=== PATIENT | male | born 1935 | race Caucasian/White ===

== ENCOUNTER 2017-08-29 14:18 | Emergency (ER) | payer MEDICARE, OTHER ==
[~2017-08-29] VITALS: Ht 175.3 cm; Wt 102.9 kg
[~2017-08-29 14:18] MED LIST: AMIO100T4 PO; ASPI-496 PO; CELE200C PO; DABI150C PO; DIPH1TAB PO; FURO-92 PO; LISI5TAB7 PO; NITR0.4T28 SL; PANT40TA5 PO; POTA20TA6 PO; PRAV40TA PO
[2017-08-29] MEDS ORDERED: ONDANSETRON ODT 4 MG PO ONE (15:30)
[2017-08-29 15:39] LABS: BASOPHILS # (AUTO) 0.04 x10^3/uL (0-0.1); BASOPHILS % (AUTO) 0 % (0-1); EOSINOPHILS % (AUTO) 0 % (1-7); LYMPHOCYTES # (AUTO) 1.38 x10^3/uL (1-3.4); LYMPHOCYTES % (AUTO) 15 % (22-44); MD NO; MEAN CORPUSCULAR HEMOGLOBIN 29.6 pg (27.5-34.5); MEAN CORPUSCULAR HGB CONC 32.9 g/dL (33.2-36.2); MEAN PLATELET VOLUME 8.5 fL (7.4-10.4); MONOCYTES % (AUTO) 13 % (2-9); NEUTROPHILS # (AUTO) 6.53 x10^3/uL (1.8-6.8); NEUTROPHILS % (AUTO) 71 % (42-75); PLATELET COUNT 198 x10^3/uL (130-400); RED BLOOD COUNT 4.21 x10^6/uL (4.38-5.82); RED CELL DISTRIBUTION WIDTH 15.3 % (9.4-14.8)
[2017-08-29] MEDS ORDERED: ONDANSETRON ODT 4 MG ONE (15:40)
[2017-08-29 15:50] LABS: ALBUMIN 3.5 g/dL (3.4-5.0); ANION GAP 10 mmol/L (5-15); CALCIUM 8.8 mg/dL (8.5-10.1); CHLORIDE 106 mmol/L (98-107); CREATININE 0.89 mg/dL (0.7-1.3)
[2017-08-29 15:54] LABS: TROPONIN I < 0.015 ng/mL (0.000-0.045)
[2017-08-29 16:21] LABS: MICROSCOPIC NOT IND
[2017-08-29 16:23] LABS: CULTURE INDICATED? NO
[2017-08-29 17:24] VITALS: BP 127/78
== END 2017-08-29 18:01 | disposition home or self-care (01) ==
LOC: ED 17:29
DX: R53.1 Weakness (principal); I11.0 Hypertensive heart disease with heart failure; I50.1 Left ventricular failure, unspecified; Z87.891 Personal history of nicotine dependence
CPT/HCPCS: 36415; 71045; 80048; 81003; 82040; 83880; 84484; 85025; 93005; 99285; Q0162

== ENCOUNTER 2017-09-01 17:18 | Emergency (ER) | payer MEDICARE ==
[~2017-09-01] VITALS: Ht 172.7 cm; Wt 102.2 kg
[2017-09-01] MEDS ORDERED: MAALOX/HYOSCYAMINE/LIDOCAINE 45 ML BTL PO ONE (18:30)
[2017-09-01] MEDS ORDERED: ONDANSETRON ODT 4 MG PO ONE (18:30)
[2017-09-01] MEDS ORDERED: FURO-93 PO (18:33)
[2017-09-01] MEDS ORDERED: ASCO10004 PO (18:33)
[2017-09-01] MEDS ORDERED: CHOL2000 PO (18:33)
[2017-09-01] MEDS ORDERED: CALC-545 PO (18:33)
[2017-09-01 19:07] LABS: BASOPHILS # (AUTO) 0.12 x10^3/uL (0-0.1); BASOPHILS % (AUTO) 1 % (0-1); EOSINOPHILS # (AUTO) 0.22 x10^3/uL (0-0.4); EOSINOPHILS % (AUTO) 2 % (1-7); LYMPHOCYTES # (AUTO) 1.45 x10^3/uL (1-3.4); LYMPHOCYTES % (AUTO) 15 % (22-44); MD NO; MEAN CORPUSCULAR HEMOGLOBIN 29.8 pg (27.5-34.5); MEAN CORPUSCULAR VOLUME 90.2 fL (81-97); MEAN PLATELET VOLUME 8.9 fL (7.4-10.4); MONOCYTES % (AUTO) 10 % (2-9); NEUTROPHILS # (AUTO) 7.03 x10^3/uL (1.8-6.8); NEUTROPHILS % (AUTO) 72 % (42-75); PLATELET COUNT 201 x10^3/uL (130-400); RED BLOOD COUNT 4.35 x10^6/uL (4.38-5.82); RED CELL DISTRIBUTION WIDTH 15.4 % (9.4-14.8)
[2017-09-01 19:10] LABS: ALANINE AMINOTRANSFERASE 18 U/L (12-78); ALBUMIN 3.6 g/dL (3.4-5.0); ANION GAP 9 mmol/L (5-15); CALCIUM 8.4 mg/dL (8.5-10.1); CHLORIDE 105 mmol/L (98-107); CREATININE 0.78 mg/dL (0.7-1.3)
[2017-09-01] MEDS ORDERED: MAALOX/HYOSCYAMINE/LIDOCAINE 45 ML BTL ONE (19:11)
[2017-09-01] MEDS ORDERED: ONDANSETRON ODT 4 MG ONE (19:11)
[2017-09-01 19:15] LABS: ALKALINE PHOSPHATASE 66 U/L (45-117); BILIRUBIN,TOTAL 0.9 mg/dL (0.2-1.0); TOTAL PROTEIN 7.5 g/dL (6.4-8.2); TROPONIN I < 0.015 ng/mL (0.000-0.045)
[2017-09-01 19:17] VITALS: BP 143/71
== END 2017-09-01 20:29 | disposition home or self-care (01) ==
LOC: ED 20:00
DX: R11.0 Nausea (principal); R60.0 Localized edema; I11.0 Hypertensive heart disease with heart failure; I50.9 Heart failure, unspecified; I48.91 Unspecified atrial fibrillation; Z88.0 Allergy status to penicillin
CPT/HCPCS: 36415; 74022; 80053; 83690; 83880; 84484; 85025; 93005; 99285; Q0162

== ENCOUNTER → 2017-09-16 | Outpatient (CLI) | payer MEDICARE ==
[~2017-09-16] MED LIST changes: +ASCO10004 PO; +CALC-545 PO; +CHOL2000 PO; +FURO-93 PO
== END | disposition home or self-care (01) ==
LOC: CFH 10:52
PROVIDERS: ATTEND Nurse Practitioner Primary Care
DX: M81.0 Age-related osteoporosis without current pathological fracture (principal); I10 Essential (primary) hypertension; E29.1 Testicular hypofunction; I48.91 Unspecified atrial fibrillation; R11.0 Nausea; E78.2 Mixed hyperlipidemia
CPT/HCPCS: 77080

== ENCOUNTER 2017-10-09 18:30 | Observation (INO) | payer MEDICARE ==
[~2017-10-09] VITALS: Ht 175.3 cm; Wt 99.2 kg
[2017-10-09 19:13] LABS: BASOPHILS # (AUTO) 0.04 x10^3/uL (0-0.1); BASOPHILS % (AUTO) 1 % (0-1); EOSINOPHILS # (AUTO) 0.18 x10^3/uL (0-0.4); EOSINOPHILS % (AUTO) 2 % (1-7); LYMPHOCYTES # (AUTO) 1.71 x10^3/uL (1-3.4); LYMPHOCYTES % (AUTO) 18 % (22-44); MD NO; MEAN CORPUSCULAR HGB CONC 33.5 g/dL (33.2-36.2); MEAN CORPUSCULAR VOLUME 86.6 fL (81-97); MEAN PLATELET VOLUME 8.9 fL (7.4-10.4); MONOCYTES # (AUTO) 0.96 x10^3/uL (0.2-0.8); MONOCYTES % (AUTO) 10 % (2-9); NEUTROPHILS # (AUTO) 6.36 x10^3/uL (1.8-6.8); NEUTROPHILS % (AUTO) 69 % (42-75); PLATELET COUNT 208 x10^3/uL (130-400); RED BLOOD COUNT 4.46 x10^6/uL (4.38-5.82); RED CELL DISTRIBUTION WIDTH 16.6 % (9.4-14.8)
[2017-10-09 19:27] LABS: TROPONIN I < 0.015 ng/mL (0.000-0.045)
[2017-10-09 19:43] LABS: MICROSCOPIC AUTO
[2017-10-09 19:48] LABS: CULTURE INDICATED? NO
[2017-10-09] MEDS ORDERED: OMEG1CAP24 PO (20:02)
[2017-10-09] MEDS ORDERED: CYAN25009 PO (20:02)
[2017-10-09] MEDS ORDERED: GLUC1CAP48 PO (20:02)
[2017-10-09] MEDS ORDERED: LOSA25TA5 PO (20:02)
[2017-10-09 20:46] LABS: ALBUMIN 3.7 g/dL (3.4-5.0); ANION GAP 9 mmol/L (5-15); CALCIUM 8.8 mg/dL (8.5-10.1); CHLORIDE 104 mmol/L (98-107)
[2017-10-09 20:49] LABS: CREATININE 0.87 mg/dL (0.7-1.3)
[2017-10-09 20:52] LABS: ALKALINE PHOSPHATASE 66 U/L (45-117); BILIRUBIN,TOTAL 0.6 mg/dL (0.2-1.0); TOTAL PROTEIN 7.4 g/dL (6.4-8.2)
[2017-10-09 20:54] LABS: ALANINE AMINOTRANSFERASE 18 U/L (12-78)
[2017-10-09] MEDS ORDERED: MORPHINE SULFATE 4 MG/ML, 1ML IVPush PRN (21:30)
[2017-10-09] MEDS ORDERED: MORPHINE SULFATE 4 MG/ML, 1ML ONE (21:54)
[2017-10-09] MEDS ORDERED: DIPHENHYDRAMINE 50 MG/ML, 1ML IVPush ONE (22:30)
[2017-10-09] MEDS ORDERED: DIPHENHYDRAMINE 50 MG/ML, 1ML IV ONE (22:30)
[2017-10-09] MEDS ORDERED: ACETAMINOPHEN 325 MG TABLET PO PRN (23:00)
[2017-10-09] MEDS ORDERED: TAMSULOSIN 0.4 MG CAP.ER.24H PO ONE (23:00)
[2017-10-09] MEDS: OMEGA-3/FISH OIL CAPSULE PO SCH (23:00)
[2017-10-09] MEDS ORDERED: NITROGLYCERIN 0.4 MG BOTTLE (25 TABS) SL PRN (23:00)
[2017-10-09] MEDS ORDERED: LEVOFLOXACIN 500 MG TABLET PO SCH (23:00)
[2017-10-09] MEDS ORDERED: ONDANSETRON 2MG/ML, 2ML IVPush PRN (23:00)
[2017-10-09] MEDS: SODIUM CHLORIDE 0.9% 1,000 ML IV SCH (23:31)
[2017-10-09] MEDS: DABIGATRAN 150 MG CAPSULE PO SCH (23:31)
[2017-10-10 01:37] VITALS: BP 135/83
[2017-10-10 05:57] LABS: ANION GAP 8 mmol/L (5-15); CALCIUM 8.7 mg/dL (8.5-10.1); CHLORIDE 106 mmol/L (98-107)
[2017-10-10 06:00] LABS: CREATININE 0.81 mg/dL (0.7-1.3)
[2017-10-10 06:06] LABS: BASOPHILS # (AUTO) 0.03 x10^3/uL (0-0.1); BASOPHILS % (AUTO) 1 % (0-1); EOSINOPHILS % (AUTO) 0 % (1-7); LYMPHOCYTES # (AUTO) 1.53 x10^3/uL (1-3.4); LYMPHOCYTES % (AUTO) 25 % (22-44); MD NO; MEAN CORPUSCULAR HEMOGLOBIN 28.4 pg (27.5-34.5); MEAN CORPUSCULAR HGB CONC 32.6 g/dL (33.2-36.2); MEAN CORPUSCULAR VOLUME 86.9 fL (81-97); MEAN PLATELET VOLUME 8.9 fL (7.4-10.4); MONOCYTES # (AUTO) 0.79 x10^3/uL (0.2-0.8); MONOCYTES % (AUTO) 13 % (2-9); NEUTROPHILS # (AUTO) 3.85 x10^3/uL (1.8-6.8); NEUTROPHILS % (AUTO) 62 % (42-75); PLATELET COUNT 186 x10^3/uL (130-400); RED CELL DISTRIBUTION WIDTH 17.1 % (9.4-14.8)
[2017-10-10 08:15] VITALS: BP 122/75
[2017-10-10] MEDS ORDERED: LOSARTAN 25MG TABLET PO SCH (09:00)
[2017-10-10] MEDS ORDERED: PANTOPROZOLE 40MG TABLET PO SCH (09:00)
[2017-10-10] MEDS ORDERED: POTASSIUM CHLORIDE 20 MEQ TAB.ER.PRT PO SCH (09:00)
[2017-10-10] MEDS ORDERED: FUROSEMIDE 20 MG TABLET PO SCH (09:00)
[2017-10-10] MEDS: DABIGATRAN 150 MG CAPSULE PO SCH (09:26)
[2017-10-10] MEDS: OMEGA-3/FISH OIL CAPSULE PO SCH (09:27)
[2017-10-10] MEDS: SODIUM CHLORIDE 0.9% 1,000 ML IV SCH (13:07)
[2017-10-10] MEDS ORDERED: LEVO750T26 PO (13:49)
== END 2017-10-10 14:50 | disposition home or self-care (01) ==
LOC: ED 19:53 → EDIP 22:07 → INTOOBSV 22:07 → 3NE 22:44
PROVIDERS: ADMIT Family Medicine; ATTEND Family Medicine
DX: N39.0 Urinary tract infection, site not specified (principal); R30.0 Dysuria; I48.2 Chronic atrial fibrillation; I11.0 Hypertensive heart disease with heart failure; E78.5 Hyperlipidemia, unspecified; I25.10 Atherosclerotic heart disease of native coronary artery without angina pectoris; I25.2 Old myocardial infarction; I50.9 Heart failure, unspecified; K57.90 Diverticulosis of intestine, part unspecified, without perforation or abscess without bleeding; M19.90 Unspecified osteoarthritis, unspecified site; Z79.01 Long term (current) use of anticoagulants; Z82.3 Family history of stroke; Z86.73 Personal history of transient ischemic attack (TIA), and cerebral infarction without residual deficits; Z96.649 Presence of unspecified artificial hip joint
CPT/HCPCS: 36415; 71045; 74176; 80048; 80053; 81001; 82550; 83880; 84443; 84484; 85025; 87040; 87086; 93005; 96374; 96375; 97162; 99285; G0378; G8978; G8979; G8980; J1200; J7030

== ENCOUNTER 2017-10-25 13:47 | Emergency (ER) | payer MEDICARE ==
[~2017-10-25] VITALS: Ht 172.7 cm; Wt 96.7 kg
[~2017-10-25 13:47] MED LIST changes: +CYAN25009 PO; +GLUC1CAP48 PO; +LEVO750T26 PO; +LOSA25TA6 PO; +OMEG1CAP24 PO
[2017-10-25 14:29] LABS: BASOPHILS # (AUTO) 0.06 x10^3/uL (0-0.1); BASOPHILS % (AUTO) 1 % (0-1); EOSINOPHILS # (AUTO) 0.22 x10^3/uL (0-0.4); EOSINOPHILS % (AUTO) 2 % (1-7); LYMPHOCYTES # (AUTO) 1.57 x10^3/uL (1-3.4); LYMPHOCYTES % (AUTO) 16 % (22-44); MD NO; MEAN CORPUSCULAR HEMOGLOBIN 28.6 pg (27.5-34.5); MEAN CORPUSCULAR HGB CONC 33.2 g/dL (33.2-36.2); MEAN CORPUSCULAR VOLUME 86.1 fL (81-97); MEAN PLATELET VOLUME 8.7 fL (7.4-10.4); MONOCYTES # (AUTO) 0.97 x10^3/uL (0.2-0.8); MONOCYTES % (AUTO) 10 % (2-9); NEUTROPHILS # (AUTO) 6.83 x10^3/uL (1.8-6.8); NEUTROPHILS % (AUTO) 71 % (42-75); PLATELET COUNT 186 x10^3/uL (130-400); RED BLOOD COUNT 4.83 x10^6/uL (4.38-5.82); RED CELL DISTRIBUTION WIDTH 18.7 % (9.4-14.8)
[2017-10-25 14:41] LABS: ALANINE AMINOTRANSFERASE 25 U/L (12-78); ALBUMIN 3.9 g/dL (3.4-5.0); ANION GAP 10 mmol/L (5-15); CALCIUM 8.9 mg/dL (8.5-10.1); CHLORIDE 102 mmol/L (98-107)
[2017-10-25 14:44] LABS: ALKALINE PHOSPHATASE 71 U/L (45-117); BILIRUBIN,TOTAL 0.7 mg/dL (0.2-1.0); CREATININE 0.95 mg/dL (0.7-1.3); TOTAL PROTEIN 7.7 g/dL (6.4-8.2)
[2017-10-25 15:33] LABS: MICROSCOPIC NOT IND
[2017-10-25 15:46] LABS: CULTURE INDICATED? NO
[2017-10-25 17:10] VITALS: BP 172/91
== END 2017-10-25 17:27 | disposition home or self-care (01) ==
LOC: ED 15:32
DX: N30.00 Acute cystitis without hematuria (principal); I48.91 Unspecified atrial fibrillation; I11.0 Hypertensive heart disease with heart failure; I50.9 Heart failure, unspecified; Z88.0 Allergy status to penicillin
CPT/HCPCS: 36415; 51702; 74176; 80053; 81003; 85025; 99285

== ENCOUNTER 2017-11-15 13:53 | Emergency (ER) | payer MEDICARE, OTHER ==
[~2017-11-15] VITALS: Ht 175.3 cm; Wt 93.5 kg
[2017-11-15] MEDS ORDERED: SODIUM CHLORIDE 0.9% 1,000ML IVBOLUS ONE (14:30)
[2017-11-15] MEDS ORDERED: SODIUM CHLORIDE FLUSH 10ML SYR IVF ONE (14:30)
[2017-11-15 14:41] LABS: BASOPHILS # (AUTO) 0.05 x10^3/uL (0-0.1); BASOPHILS % (AUTO) 1 % (0-1); EOSINOPHILS # (AUTO) 0.08 x10^3/uL (0-0.4); EOSINOPHILS % (AUTO) 1 % (1-7); LYMPHOCYTES # (AUTO) 0.86 x10^3/uL (1-3.4); LYMPHOCYTES % (AUTO) 13 % (22-44); MD NO; MEAN CORPUSCULAR HEMOGLOBIN 28.6 pg (27.5-34.5); MEAN CORPUSCULAR HGB CONC 33.2 g/dL (33.2-36.2); MEAN CORPUSCULAR VOLUME 86.2 fL (81-97); MEAN PLATELET VOLUME 8.3 fL (7.4-10.4); MONOCYTES # (AUTO) 0.85 x10^3/uL (0.2-0.8); MONOCYTES % (AUTO) 13 % (2-9); NEUTROPHILS # (AUTO) 4.79 x10^3/uL (1.8-6.8); NEUTROPHILS % (AUTO) 72 % (42-75); PLATELET COUNT 154 x10^3/uL (130-400); RED BLOOD COUNT 4.59 x10^6/uL (4.38-5.82); RED CELL DISTRIBUTION WIDTH 20.1 % (9.4-14.8)
[2017-11-15 14:52] LABS: ALBUMIN 3.7 g/dL (3.4-5.0); ANION GAP 9 mmol/L (5-15); CALCIUM 8.3 mg/dL (8.5-10.1); CHLORIDE 95 mmol/L (98-107); CREATININE 0.72 mg/dL (0.7-1.3)
[2017-11-15 14:56] LABS: TROPONIN I < 0.015 ng/mL (0.000-0.045)
[2017-11-15 17:14] VITALS: BP 156/101
== END 2017-11-15 17:28 | disposition home or self-care (01) ==
LOC: ED 14:52
DX: E87.1 Hypo-osmolality and hyponatremia (principal); R42 Dizziness and giddiness; I11.0 Hypertensive heart disease with heart failure; I50.9 Heart failure, unspecified; I48.91 Unspecified atrial fibrillation
CPT/HCPCS: 36415; 71045; 80048; 82040; 84484; 85025; 93005; 96360; 99285; J7030

== ENCOUNTER 2017-12-01 16:19 | Emergency (ER) | payer MEDICARE, OTHER ==
[~2017-12-01] VITALS: Ht 174 cm; Wt 90.5 kg
[2017-12-01] MEDS ORDERED: MORPHINE SULFATE 4 MG/ML, 1ML IVPush PRN (17:30)
[2017-12-01] MEDS ORDERED: SODIUM CHLORIDE FLUSH 10ML SYR IVF ONE (17:30)
[2017-12-01] MEDS ORDERED: MORPHINE SULFATE 4 MG/ML, 1ML ONE (17:37)
[2017-12-01 17:44] LABS: ALBUMIN 3.5 g/dL (3.4-5.0); ANION GAP 11 mmol/L (5-15); CALCIUM 8.2 mg/dL (8.5-10.1); CHLORIDE 99 mmol/L (98-107)
[2017-12-01 17:48] LABS: ALANINE AMINOTRANSFERASE 24 U/L (12-78); ALKALINE PHOSPHATASE 52 U/L (45-117); BILIRUBIN,TOTAL 0.8 mg/dL (0.2-1.0); CREATININE 0.66 mg/dL (0.7-1.3); TOTAL PROTEIN 6.8 g/dL (6.4-8.2)
[2017-12-01 17:59] LABS: BASOPHILS # (AUTO) 0.04 x10^3/uL (0-0.1); BASOPHILS % (AUTO) 1 % (0-1); EOSINOPHILS # (AUTO) 0.14 x10^3/uL (0-0.4); EOSINOPHILS % (AUTO) 2 % (1-7); LYMPHOCYTES # (AUTO) 1.31 x10^3/uL (1-3.4); LYMPHOCYTES % (AUTO) 18 % (22-44); MEAN CORPUSCULAR HEMOGLOBIN 29.6 pg (27.5-34.5); MEAN CORPUSCULAR HGB CONC 33.5 g/dL (33.2-36.2); MEAN CORPUSCULAR VOLUME 88.3 fL (81-97); MEAN PLATELET VOLUME 8.5 fL (7.4-10.4); MONOCYTES # (AUTO) 0.86 x10^3/uL (0.2-0.8); MONOCYTES % (AUTO) 12 % (2-9); NEUTROPHILS # (AUTO) 4.83 x10^3/uL (1.8-6.8); NEUTROPHILS % (AUTO) 67 % (42-75); PLATELET COUNT 158 x10^3/uL (130-400); RED BLOOD COUNT 4.31 x10^6/uL (4.38-5.82); RED CELL DISTRIBUTION WIDTH 20.2 % (9.4-14.8)
[2017-12-01 18:00] LABS: MD NO
[2017-12-01 18:03] LABS: MICROSCOPIC AUTO
[2017-12-01 18:07] LABS: CULTURE INDICATED? YES
[2017-12-01 19:57] VITALS: BP 145/89
== END 2017-12-01 21:10 | disposition home or self-care (01) ==
LOC: ED 18:39
DX: R10.2 Pelvic and perineal pain (principal); R33.9 Retention of urine, unspecified; I11.0 Hypertensive heart disease with heart failure; I50.9 Heart failure, unspecified; I25.2 Old myocardial infarction; E78.00 Pure hypercholesterolemia, unspecified; I48.91 Unspecified atrial fibrillation; Z87.891 Personal history of nicotine dependence
CPT/HCPCS: 36415; 74176; 80053; 81001; 83605; 85025; 87086; 96374

== ENCOUNTER 2017-12-28 08:04 | Emergency (ER) | payer MEDICARE ==
[~2017-12-28] VITALS: Ht 175.3 cm; Wt 84.1 kg
[2017-12-28] MEDS ORDERED: DILTIAZEM 5 MG/ML, 5ML ONE (08:30)
[2017-12-28 08:42] LABS: BASOPHILS # (AUTO) 0.04 x10^3/uL (0-0.1); BASOPHILS % (AUTO) 1 % (0-1); EOSINOPHILS # (AUTO) 0.21 x10^3/uL (0-0.4); EOSINOPHILS % (AUTO) 3 % (1-7); LYMPHOCYTES # (AUTO) 1.08 x10^3/uL (1-3.4); LYMPHOCYTES % (AUTO) 16 % (22-44); MD NO; MEAN CORPUSCULAR HEMOGLOBIN 30.5 pg (27.5-34.5); MEAN CORPUSCULAR HGB CONC 33.6 g/dL (33.2-36.2); MEAN CORPUSCULAR VOLUME 90.7 fL (81-97); MEAN PLATELET VOLUME 8.5 fL (7.4-10.4); MONOCYTES # (AUTO) 0.67 x10^3/uL (0.2-0.8); MONOCYTES % (AUTO) 10 % (2-9); NEUTROPHILS # (AUTO) 4.99 x10^3/uL (1.8-6.8); NEUTROPHILS % (AUTO) 71 % (42-75); PLATELET COUNT 177 x10^3/uL (130-400); RED CELL DISTRIBUTION WIDTH 17.9 % (9.4-14.8)
[2017-12-28 08:53] LABS: ALBUMIN 3.6 g/dL (3.4-5.0); ANION GAP 7 mmol/L (5-15); CALCIUM 8.9 mg/dL (8.5-10.1); CHLORIDE 106 mmol/L (98-107); CREATININE 0.88 mg/dL (0.7-1.3)
[2017-12-28 08:56] LABS: CREATINE KINASE, TOTAL 67 U/L (39-308); TROPONIN I < 0.015 ng/mL (0.000-0.045)
[2017-12-28] MEDS ORDERED: DILTIAZEM 5 MG/ML, 5ML IVPush ONE (09:00)
[2017-12-28 09:07] LABS: MICROSCOPIC INDICATED
[2017-12-28 09:08] LABS: CULTURE INDICATED? YES
[2017-12-28 09:17] VITALS: BP 155/80
[2017-12-28] MEDS ORDERED: DILTIAZEM 60 MG TABLET ONE (10:15)
[2017-12-28] MEDS ORDERED: DILTIAZEM 60 MG TABLET PO ONE (11:00)
== END 2017-12-28 10:21 | disposition home or self-care (01) ==
LOC: ED 08:58
DX: I48.2 Chronic atrial fibrillation (principal); I50.9 Heart failure, unspecified; I25.2 Old myocardial infarction; E78.00 Pure hypercholesterolemia, unspecified; I11.0 Hypertensive heart disease with heart failure; W19.XXXA Unspecified fall, initial encounter; Y93.89 Activity, other specified; Y99.8 Other external cause status; Y92.129 Unspecified place in nursing home as the place of occurrence of the external cause
CPT/HCPCS: 36415; 71045; 80048; 81001; 82040; 82550; 83735; 84484; 85025; 87077; 87086; 87186; 93005; 96374

== ENCOUNTER 2018-01-01 21:10 | Inpatient (IN) | payer MEDICARE ==
[~2018-01-01] VITALS: Ht 175.3 cm; Wt 93.8 kg
[2018-01-01 21:51] LABS: BASOPHILS # (AUTO) 0.02 x10^3/uL (0-0.1); BASOPHILS % (AUTO) 0 % (0-1); EOSINOPHILS % (AUTO) 0 % (1-7); LYMPHOCYTES # (AUTO) 0.64 x10^3/uL (1-3.4); LYMPHOCYTES % (AUTO) 11 % (22-44); MD NO; MEAN CORPUSCULAR HEMOGLOBIN 30.7 pg (27.5-34.5); MEAN CORPUSCULAR HGB CONC 33.6 g/dL (33.2-36.2); MEAN CORPUSCULAR VOLUME 91.6 fL (81-97); MEAN PLATELET VOLUME 8.7 fL (7.4-10.4); MONOCYTES # (AUTO) 0.95 x10^3/uL (0.2-0.8); MONOCYTES % (AUTO) 16 % (2-9); NEUTROPHILS # (AUTO) 4.39 x10^3/uL (1.8-6.8); NEUTROPHILS % (AUTO) 73 % (42-75); PLATELET COUNT 158 x10^3/uL (130-400); RED BLOOD COUNT 4.55 x10^6/uL (4.38-5.82); RED CELL DISTRIBUTION WIDTH 17.3 % (9.4-14.8)
[2018-01-01 21:59] LABS: ALANINE AMINOTRANSFERASE 78 U/L (12-78); ALBUMIN 3.2 g/dL (3.4-5.0); ANION GAP 8 mmol/L (5-15); CALCIUM 7.9 mg/dL (8.5-10.1); CHLORIDE 107 mmol/L (98-107); CREATININE 0.93 mg/dL (0.7-1.3)
[2018-01-01 22:03] LABS: MICROSCOPIC AUTO
[2018-01-01 22:04] LABS: ALKALINE PHOSPHATASE 70 U/L (45-117); TOTAL PROTEIN 6.7 g/dL (6.4-8.2); TROPONIN I < 0.015 ng/mL (0.000-0.045)
[2018-01-01 22:08] LABS: CULTURE INDICATED? YES
[2018-01-01] MEDS ORDERED: SODIUM CHLORIDE 0.9% 1,000 ML IV ONE (22:46)
[2018-01-01] MEDS ORDERED: ONDANSETRON 2MG/ML, 2ML IVPush PRN (23:00)
[2018-01-01] MEDS ORDERED: ONDANSETRON ODT 4 MG PO PRN (23:30)
[2018-01-01] MEDS ORDERED: ACETAMINOPHEN 325 MG TABLET PO PRN (23:30)
[2018-01-01] MEDS ORDERED: NITROGLYCERIN 0.4 MG BOTTLE (25 TABS) SL PRN (23:30)
[2018-01-02 00:54] VITALS: BP 159/92
[2018-01-02] MEDS: SODIUM CHLORIDE 0.9% 1,000 ML IV SCH ×2 (01:25→12:45)
[2018-01-02] MEDS: CEFTRIAXONE PMX 1GM/50ML 50 ML IV SCH ×2 (01:25→23:15)
[2018-01-02] MEDS ORDERED: DILTIAZEM 125 MG in SODIUM CHLORIDE 0.9% 100 ML IV SCH (01:30)
[2018-01-02] MEDS: ONDANSETRON 2MG/ML, 2ML IVPush PRN ×3 (01:35→14:37)
[2018-01-02 03:42] VITALS: BP 121/79
[2018-01-02 05:36] LABS: CHLORIDE 107 mmol/L (98-107)
[2018-01-02 05:43] LABS: ANION GAP 13 mmol/L (5-15); CALCIUM 8.3 mg/dL (8.5-10.1); CREATININE 0.81 mg/dL (0.7-1.3)
[2018-01-02 05:44] LABS: MEAN CORPUSCULAR HEMOGLOBIN 30.7 pg (27.5-34.5); MEAN CORPUSCULAR HGB CONC 33.6 g/dL (33.2-36.2); MEAN CORPUSCULAR VOLUME 91.5 fL (81-97); RED BLOOD COUNT 4.66 x10^6/uL (4.38-5.82); RED CELL DISTRIBUTION WIDTH 16.9 % (9.4-14.8)
[2018-01-02 06:05] LABS: BASOPHILS # (AUTO) 0.04 x10^3/uL (0-0.1); BASOPHILS % (AUTO) 0 % (0-1); EOSINOPHILS % (AUTO) 0 % (1-7); LYMPHOCYTES # (AUTO) 0.74 x10^3/uL (1-3.4); LYMPHOCYTES % (AUTO) 6 % (22-44); MD SCAN; MEAN PLATELET VOLUME 9.2 fL (7.4-10.4); MONOCYTES # (AUTO) 0.76 x10^3/uL (0.2-0.8); MONOCYTES % (AUTO) 7 % (2-9); NEUTROPHILS # (AUTO) 10.11 x10^3/uL (1.8-6.8); NEUTROPHILS % (AUTO) 87 % (42-75); PLATELET COUNT 116 x10^3/uL (130-400)
[2018-01-02 07:42] VITALS: BP 126/82
[2018-01-02] MEDS: PANTOPROZOLE 40MG TABLET PO SCH (08:36)
[2018-01-02] MEDS: LOSARTAN 25MG TABLET PO SCH (08:36)
[2018-01-02] MEDS: DABIGATRAN 150 MG CAPSULE PO SCH ×2 (08:36→18:22)
[2018-01-02] MEDS ORDERED: TAMS0.4C2 PO (10:27)
[2018-01-02] MEDS ORDERED: BUPR-86 PO (10:27)
[2018-01-02] MEDS: POTASSIUM CHLORIDE 20 MEQ TAB.ER.PRT PO SCH ×2 (11:15→18:22)
[2018-01-02] MEDS: SODIUM BICARBONATE 8.4% 100 MEQ in DEXTROSE 5% 1,000 ML IV SCH ×2 (11:15→20:51)
[2018-01-02] MEDS ORDERED: BUPROPION SR 150 MG TABLET PO SCH (13:00)
[2018-01-02 14:31] VITALS: BP 122/79
[2018-01-02 14:50] LABS: SALICYLATE LEVEL < 1.7 mg/dL (2.8-20.0)
[2018-01-02 14:54] LABS: ACETAMINOPHEN 299 mcg/mL (10-30)
[2018-01-02 16:30] LABS: INTERNATIONAL NORMALIZED RATIO 1.83 (0.93-1.1)
[2018-01-02] MEDS ORDERED: ACETYLCYSTEINE IV ONE ×2 (16:30→16:40)
[2018-01-02] MEDS ORDERED: DEXTROSE 5% IV ONE ×2 (16:30→16:40)
[2018-01-02 16:33] LABS: ALBUMIN 3.1 g/dL (3.4-5.0); ANION GAP 5 mmol/L (5-15); CALCIUM 7.9 mg/dL (8.5-10.1); CHLORIDE 110 mmol/L (98-107)
[2018-01-02 16:41] LABS: ALANINE AMINOTRANSFERASE 1392 U/L (12-78); ALKALINE PHOSPHATASE 73 U/L (45-117); BILIRUBIN,TOTAL 2.1 mg/dL (0.2-1.0); TOTAL PROTEIN 6.3 g/dL (6.4-8.2)
[2018-01-02 16:53] LABS: ACETAMINOPHEN 205 mcg/mL (10-30)
[2018-01-02] MEDS ORDERED: MAGNESIUM SULFATE PMX 2GM/50ML 50 ML IV ONE (17:30)
[2018-01-02] MEDS ORDERED: ACETYLCYSTEINE 4,500 MG in DEXTROSE 5% 500 ML IV ONE (17:30)
[2018-01-02 20:15] VITALS: BP 128/77
[2018-01-02] MEDS: TAMSULOSIN 0.4 MG CAP.ER.24H PO SCH (20:50)
[2018-01-02] MEDS: PRAVASTATIN 40 MG TABLET PO SCH (20:50)
[2018-01-02] MEDS: ACETYLCYSTEINE 9,000 MG in DEXTROSE 5% 1,000 ML IV ONE (20:52)
[2018-01-03 01:09] VITALS: BP 126/74
[2018-01-03] MEDS ORDERED: DILTIAZEM 125 MG in SODIUM CHLORIDE 0.9% 100 ML IV SCH (01:30)
[2018-01-03] MEDS: SODIUM BICARBONATE 8.4% 100 MEQ in DEXTROSE 5% 1,000 ML IV SCH ×2 (03:05→21:19)
[2018-01-03] MEDS: ACETYLCYSTEINE 9,000 MG in DEXTROSE 5% 1,000 ML IV ONE (03:07)
[2018-01-03 05:14] LABS: MEAN CORPUSCULAR HGB CONC 33.8 g/dL (33.2-36.2); MEAN CORPUSCULAR VOLUME 91.8 fL (81-97); RED BLOOD COUNT 4.13 x10^6/uL (4.38-5.82)
[2018-01-03 05:17] LABS: ALBUMIN 2.6 g/dL (3.4-5.0); CALCIUM 7.8 mg/dL (8.5-10.1)
[2018-01-03 05:29] LABS: CREATININE 0.76 mg/dL (0.7-1.3)
[2018-01-03 05:30] LABS: ACETAMINOPHEN 102 mcg/mL (10-30); ALKALINE PHOSPHATASE 65 U/L (45-117); BILIRUBIN,TOTAL 1.8 mg/dL (0.2-1.0); TOTAL PROTEIN 5.5 g/dL (6.4-8.2)
[2018-01-03 05:43] LABS: ALANINE AMINOTRANSFERASE 3463 U/L (12-78)
[2018-01-03 05:44] LABS: ANION GAP 10 mmol/L (5-15); CHLORIDE 100 mmol/L (98-107)
[2018-01-03 05:51] LABS: BASOPHILS # (AUTO) 0.01 x10^3/uL (0-0.1); BASOPHILS % (AUTO) 0 % (0-1); EOSINOPHILS % (AUTO) 0 % (1-7); LYMPHOCYTES # (AUTO) 0.83 x10^3/uL (1-3.4); LYMPHOCYTES % (AUTO) 6 % (22-44); MD SCAN; MEAN PLATELET VOLUME 9.5 fL (7.4-10.4); MONOCYTES # (AUTO) 0.02 x10^3/uL (0.2-0.8); MONOCYTES % (AUTO) 0 % (2-9); NEUTROPHILS # (AUTO) 12.39 x10^3/uL (1.8-6.8); NEUTROPHILS % (AUTO) 94 % (42-75); PLATELET COUNT 70 x10^3/uL (130-400)
[2018-01-03 05:55] LABS: INTERNATIONAL NORMALIZED RATIO 2.84 (0.93-1.1); PROTHROMBIN TIME 28.9 Seconds (9.6-11.5)
[2018-01-03 07:26] VITALS: BP 111/68
[2018-01-03] MEDS: POTASSIUM CHLORIDE 20 MEQ TAB.ER.PRT PO SCH ×4 (08:00→21:17)
[2018-01-03] MEDS: METOPROLOL TARTRATE 25 MG TABLET PO SCH ×2 (08:57→20:42)
[2018-01-03] MEDS ORDERED: METOPROLOL TARTRATE 25 MG TABLET PO ONE (09:00)
[2018-01-03] MEDS ORDERED: POTASSIUM CHLORIDE 20 MEQ TAB.ER.PRT ONE (09:02)
[2018-01-03] MEDS ORDERED: METOPROLOL TARTRATE 25 MG TABLET ONE (09:02)
[2018-01-03] MEDS: PANTOPROZOLE 40MG TABLET PO SCH (09:06)
[2018-01-03] MEDS: LOSARTAN 25MG TABLET PO SCH (09:07)
[2018-01-03] MEDS: DABIGATRAN 150 MG CAPSULE PO SCH ×2 (09:07→21:17)
[2018-01-03] MEDS ORDERED: MAGNESIUM SULFATE PMX 4GM/100M 100 ML IV ONE (09:30)
[2018-01-03] MEDS ORDERED: POTASSIUM PHOSPHATE 44 MEQ in SODIUM CHLORIDE 0.9% 500 ML IV ONE (11:00)
[2018-01-03 14:20] VITALS: BP 98/62
[2018-01-03] MEDS ORDERED: MAGNESIUM HYDROXIDE 8%, 30ML UDC PO PRN (15:00)
[2018-01-03] MEDS ORDERED: DOCUSATE 100 MG CAPSULE PO PRN (15:00)
[2018-01-03] MEDS ORDERED: BISACODYL 10 MG SUPP PR PRN (15:00)
[2018-01-03 20:09] VITALS: BP 92/57
[2018-01-03] MEDS: TAMSULOSIN 0.4 MG CAP.ER.24H PO SCH (21:17)
[2018-01-03] MEDS: ACETYLCYSTEINE 9,000 MG in DEXTROSE 5% 1,000 ML IV SCH (21:19)
[2018-01-03] MEDS: PRAVASTATIN 40 MG TABLET PO SCH (21:24)
[2018-01-03] MEDS: ONDANSETRON 2MG/ML, 2ML IVPush PRN (23:42)
[2018-01-04 00:24] VITALS: BP 115/72
[2018-01-04 05:36] VITALS: BP 121/81
[2018-01-04] MEDS: METOPROLOL TARTRATE 25 MG TABLET PO SCH ×2 (05:38→17:26)
[2018-01-04 06:13] LABS: INTERNATIONAL NORMALIZED RATIO 2.52 (0.93-1.1); PROTHROMBIN TIME 25.8 Seconds (9.6-11.5)
[2018-01-04 06:19] LABS: CHLORIDE 98 mmol/L (98-107)
[2018-01-04 06:37] LABS: ACETAMINOPHEN 20 mcg/mL (10-30); ALANINE AMINOTRANSFERASE 3608 U/L (12-78); ALBUMIN 2.4 g/dL (3.4-5.0); ALKALINE PHOSPHATASE 69 U/L (45-117); ANION GAP 8 mmol/L (5-15); BILIRUBIN,TOTAL 2.1 mg/dL (0.2-1.0); CALCIUM 8.1 mg/dL (8.5-10.1); CREATININE 0.72 mg/dL (0.7-1.3); TOTAL PROTEIN 5.1 g/dL (6.4-8.2)
[2018-01-04 07:02] LABS: MEAN CORPUSCULAR HEMOGLOBIN 31.3 pg (27.5-34.5); MEAN CORPUSCULAR HGB CONC 34.4 g/dL (33.2-36.2); MEAN CORPUSCULAR VOLUME 90.9 fL (81-97); RED BLOOD COUNT 3.96 x10^6/uL (4.38-5.82)
[2018-01-04 07:19] LABS: MEAN PLATELET VOLUME 9.8 fL (7.4-10.4); PLATELET COUNT 51 x10^3/uL (130-400)
[2018-01-04 07:21] LABS: BASOPHILS % (AUTO) 0 % (0-1); EOSINOPHILS # (AUTO) 0.38 x10^3/uL (0-0.4); EOSINOPHILS % (AUTO) 4 % (1-7); LYMPHOCYTES # (AUTO) 0.76 x10^3/uL (1-3.4); LYMPHOCYTES % (AUTO) 9 % (22-44); MD SCAN; MONOCYTES # (AUTO) 0.08 x10^3/uL (0.2-0.8); MONOCYTES % (AUTO) 1 % (2-9); NEUTROPHILS # (AUTO) 7.51 x10^3/uL (1.8-6.8); NEUTROPHILS % (AUTO) 86 % (42-75)
[2018-01-04 07:30] VITALS: BP 118/78
[2018-01-04] MEDS ORDERED: POTASSIUM PHOSPHATE 44 MEQ in SODIUM CHLORIDE 0.9% 500 ML IV ONE (08:30)
[2018-01-04] MEDS: SODIUM BICARBONATE 8.4% 100 MEQ in DEXTROSE 5% 1,000 ML IV SCH (09:55)
[2018-01-04] MEDS: DABIGATRAN 150 MG CAPSULE PO SCH ×2 (09:56→17:25)
[2018-01-04] MEDS: POTASSIUM CHLORIDE 20 MEQ TAB.ER.PRT PO SCH ×3 (09:56→21:49)
[2018-01-04] MEDS: PANTOPROZOLE 40MG TABLET PO SCH (09:56)
[2018-01-04] MEDS: LOSARTAN 25MG TABLET PO SCH (09:57)
[2018-01-04] MEDS ORDERED: VANCOMYCIN PER PHARMACY MC PRN (13:30)
[2018-01-04 13:34] VITALS: BP 128/76
[2018-01-04] MEDS ORDERED: PHARMACOKINETIC MONITORING MC PRN (14:00)
[2018-01-04] MEDS: VANCOMYCIN 1,600 MG in SODIUM CHLORIDE 0.9% 250 ML IV SCH (14:52)
[2018-01-04] MEDS: ACETYLCYSTEINE 9,000 MG in DEXTROSE 5% 1,000 ML IV SCH (14:52)
[2018-01-04 19:21] VITALS: BP 122/79
[2018-01-04] MEDS: TAMSULOSIN 0.4 MG CAP.ER.24H PO SCH (21:49)
[2018-01-04] MEDS: PRAVASTATIN 40 MG TABLET PO SCH (21:49)
[2018-01-04] MEDS: ONDANSETRON 2MG/ML, 2ML IVPush PRN (22:01)
[2018-01-05 00:44] VITALS: BP 131/74
[2018-01-05 05:53] LABS: MEAN CORPUSCULAR HEMOGLOBIN 31.2 pg (27.5-34.5); MEAN CORPUSCULAR HGB CONC 34.1 g/dL (33.2-36.2); MEAN CORPUSCULAR VOLUME 91.3 fL (81-97); MEAN PLATELET VOLUME 9.1 fL (7.4-10.4); PLATELET COUNT 63 x10^3/uL (130-400); RED BLOOD COUNT 3.72 x10^6/uL (4.38-5.82); RED CELL DISTRIBUTION WIDTH 16.8 % (9.4-14.8)
[2018-01-05 06:02] LABS: INTERNATIONAL NORMALIZED RATIO 1.58 (0.93-1.1); PROTHROMBIN TIME 16.5 Seconds (9.6-11.5)
[2018-01-05 06:03] LABS: ALBUMIN 2.4 g/dL (3.4-5.0); ANION GAP 10 mmol/L (5-15); CALCIUM 7.4 mg/dL (8.5-10.1); CHLORIDE 101 mmol/L (98-107)
[2018-01-05 06:14] LABS: ALANINE AMINOTRANSFERASE 2300 U/L (12-78); ALKALINE PHOSPHATASE 78 U/L (45-117); BILIRUBIN,TOTAL 2.7 mg/dL (0.2-1.0); CREATININE 0.58 mg/dL (0.7-1.3); TOTAL PROTEIN 5.5 g/dL (6.4-8.2)
[2018-01-05 06:17] LABS: ACETAMINOPHEN < 2 mcg/mL (10-30)
[2018-01-05 06:26] LABS: MD YES
[2018-01-05 06:29] LABS: BAND#(MANUAL) 0.06 x10^3/uL; BANDS%(MANUAL) 1 % (0-7); EOS#(MANUAL) 0.24 x10^3/uL (0.0-0.4); EOS% (MANUAL) 4 % (1-7); LYMPH#(MANUAL) 0.78 x10^3/uL (1-3.4); LYMPHS% (MANUAL) 13 % (22-44); MONOS#(MANUAL) 0.18 x10^3/uL (0.3-2.7); MONOS% (MANUAL) 3 % (2-9); SEG#(MANUAL) 4.74 x10^3/uL (1.8-6.8); SEGS% (MANUAL) 79 % (42-75)
[2018-01-05 06:36] LABS: <PLATELET ESTIMATE> DECREASED; <PLT MORPHOLOGY> NORMAL PLT MORPH; ANISOCYTOSIS 1+
[2018-01-05] MEDS: ACETYLCYSTEINE 9,000 MG in DEXTROSE 5% 1,000 ML IV SCH ×2 (06:41→23:03)
[2018-01-05] MEDS: SODIUM BICARBONATE 8.4% 100 MEQ in DEXTROSE 5% 1,000 ML IV SCH ×2 (06:41→18:26)
[2018-01-05] MEDS: METOPROLOL TARTRATE 25 MG TABLET PO SCH ×2 (06:53→17:38)
[2018-01-05 08:04] VITALS: BP 129/79
[2018-01-05] MEDS: PRAVASTATIN 40 MG TABLET PO SCH (09:00)
[2018-01-05] MEDS: PANTOPROZOLE 40MG TABLET PO SCH (09:29)
[2018-01-05] MEDS: DABIGATRAN 150 MG CAPSULE PO SCH ×2 (09:30→17:38)
[2018-01-05] MEDS: LOSARTAN 25MG TABLET PO SCH (09:30)
[2018-01-05] MEDS: POTASSIUM CHLORIDE 20 MEQ TAB.ER.PRT PO SCH ×3 (09:30→21:13)
[2018-01-05 14:00] VITALS: BP 127/71
[2018-01-05] MEDS: VANCOMYCIN 1,600 MG in SODIUM CHLORIDE 0.9% 250 ML IV SCH (16:13)
[2018-01-05 19:55] VITALS: BP 132/75
[2018-01-05] MEDS: TAMSULOSIN 0.4 MG CAP.ER.24H PO SCH (21:13)
[2018-01-06 01:43] VITALS: BP 140/69
[2018-01-06 04:49] LABS: MEAN CORPUSCULAR HEMOGLOBIN 30.7 pg (27.5-34.5); MEAN CORPUSCULAR HGB CONC 33.8 g/dL (33.2-36.2); MEAN CORPUSCULAR VOLUME 90.8 fL (81-97); MEAN PLATELET VOLUME 8.9 fL (7.4-10.4); PLATELET COUNT 69 x10^3/uL (130-400); RED BLOOD COUNT 3.95 x10^6/uL (4.38-5.82); RED CELL DISTRIBUTION WIDTH 17.1 % (9.4-14.8)
[2018-01-06 05:13] LABS: BASOPHILS # (AUTO) 0.02 x10^3/uL (0-0.1); BASOPHILS % (AUTO) 1 % (0-1); EOSINOPHILS % (AUTO) 3 % (1-7); LYMPHOCYTES # (AUTO) 0.61 x10^3/uL (1-3.4); LYMPHOCYTES % (AUTO) 19 % (22-44); MD SCAN; MONOCYTES # (AUTO) 0.29 x10^3/uL (0.2-0.8); MONOCYTES % (AUTO) 9 % (2-9); NEUTROPHILS # (AUTO) 2.24 x10^3/uL (1.8-6.8); NEUTROPHILS % (AUTO) 69 % (42-75)
[2018-01-06 05:17] LABS: CALCIUM 7.9 mg/dL (8.5-10.1); CHLORIDE 103 mmol/L (98-107)
[2018-01-06 05:20] LABS: ANION GAP 10 mmol/L (5-15); CREATININE 0.57 mg/dL (0.7-1.3)
[2018-01-06] MEDS: SODIUM BICARBONATE 8.4% 100 MEQ in DEXTROSE 5% 1,000 ML IV SCH (05:21)
[2018-01-06 05:24] LABS: ACETAMINOPHEN < 2 mcg/mL (10-30)
[2018-01-06 05:25] VITALS: BP 120/59
[2018-01-06] MEDS: METOPROLOL TARTRATE 25 MG TABLET PO SCH ×3 (05:27→20:54)
[2018-01-06 06:23] LABS: ALBUMIN 2.5 g/dL (3.4-5.0); BILIRUBIN, DIRECT 1.3 mg/dL (0.1-0.2)
[2018-01-06 06:35] LABS: BILIRUBIN,INDIRECT 1.3 mg/dL (0.0-2.0); BILIRUBIN,TOTAL 2.6 mg/dL (0.2-1.0); TOTAL PROTEIN 5.8 g/dL (6.4-8.2)
[2018-01-06] MEDS ORDERED: POTASSIUM PHOSPHATE 44 MEQ in SODIUM CHLORIDE 0.9% 500 ML IV ONE (07:00)
[2018-01-06 08:11] VITALS: BP 113/54
[2018-01-06] MEDS: MAGNESIUM SULFATE PMX 2GM/50ML 50 ML IV ONE ×2 (08:22→09:11)
[2018-01-06] MEDS: PRAVASTATIN 40 MG TABLET PO SCH (09:00)
[2018-01-06] MEDS: DABIGATRAN 150 MG CAPSULE PO SCH ×2 (09:56→18:07)
[2018-01-06] MEDS: PANTOPROZOLE 40MG TABLET PO SCH (09:56)
[2018-01-06] MEDS: POTASSIUM CHLORIDE 20 MEQ TAB.ER.PRT PO SCH ×3 (09:56→20:54)
[2018-01-06] MEDS: LOSARTAN 25MG TABLET PO SCH (09:57)
[2018-01-06 12:33] VITALS: BP 134/70
[2018-01-06 15:28] LABS: ALBUMIN 2.3 g/dL (3.4-5.0); ANION GAP 12 mmol/L (5-15); CALCIUM 7.8 mg/dL (8.5-10.1); CHLORIDE 104 mmol/L (98-107); CREATININE 0.65 mg/dL (0.7-1.3)
[2018-01-06 15:35] LABS: ALANINE AMINOTRANSFERASE 1334 U/L (12-78); ALKALINE PHOSPHATASE 86 U/L (45-117); BILIRUBIN,TOTAL 2.6 mg/dL (0.2-1.0); TOTAL PROTEIN 6.2 g/dL (6.4-8.2)
[2018-01-06] MEDS: VANCOMYCIN 1,600 MG in SODIUM CHLORIDE 0.9% 250 ML IV SCH (16:01)
[2018-01-06 19:05] VITALS: BP 137/67
[2018-01-06] MEDS: TAMSULOSIN 0.4 MG CAP.ER.24H PO SCH (20:54)
[2018-01-07 01:57] VITALS: BP 137/78
[2018-01-07] MEDS: METOPROLOL TARTRATE 25 MG TABLET PO SCH ×2 (05:37→14:31)
[2018-01-07 06:52] VITALS: BP 135/67
[2018-01-07] MEDS: DABIGATRAN 150 MG CAPSULE PO SCH ×2 (08:48→17:32)
[2018-01-07] MEDS: PRAVASTATIN 40 MG TABLET PO SCH (08:48)
[2018-01-07] MEDS: PANTOPROZOLE 40MG TABLET PO SCH (08:49)
[2018-01-07] MEDS: LOSARTAN 25MG TABLET PO SCH (08:49)
[2018-01-07] MEDS: POTASSIUM CHLORIDE 20 MEQ TAB.ER.PRT PO SCH (09:00)
[2018-01-07 10:27] LABS: ALBUMIN 2.7 g/dL (3.4-5.0); ANION GAP 8 mmol/L (5-15); CALCIUM 8.3 mg/dL (8.5-10.1); CHLORIDE 101 mmol/L (98-107); CREATININE 0.77 mg/dL (0.7-1.3)
[2018-01-07 10:35] LABS: ALANINE AMINOTRANSFERASE 1019 U/L (12-78); ALKALINE PHOSPHATASE 94 U/L (45-117); BILIRUBIN,TOTAL 3.5 mg/dL (0.2-1.0); TOTAL PROTEIN 6.5 g/dL (6.4-8.2)
[2018-01-07 10:57] LABS: BASOPHILS # (AUTO) 0.02 x10^3/uL (0-0.1); BASOPHILS % (AUTO) 0 % (0-1); EOSINOPHILS # (AUTO) 0.06 x10^3/uL (0-0.4); EOSINOPHILS % (AUTO) 1 % (1-7); LYMPHOCYTES # (AUTO) 0.56 x10^3/uL (1-3.4); LYMPHOCYTES % (AUTO) 13 % (22-44); MD SCAN; MEAN CORPUSCULAR HEMOGLOBIN 30.7 pg (27.5-34.5); MEAN CORPUSCULAR HGB CONC 33.4 g/dL (33.2-36.2); MEAN CORPUSCULAR VOLUME 91.7 fL (81-97); MEAN PLATELET VOLUME 8.7 fL (7.4-10.4); MONOCYTES # (AUTO) 0.48 x10^3/uL (0.2-0.8); MONOCYTES % (AUTO) 11 % (2-9); NEUTROPHILS # (AUTO) 3.14 x10^3/uL (1.8-6.8); NEUTROPHILS % (AUTO) 74 % (42-75); PLATELET COUNT 91 x10^3/uL (130-400); RED BLOOD COUNT 3.95 x10^6/uL (4.38-5.82); RED CELL DISTRIBUTION WIDTH 16.5 % (9.4-14.8)
[2018-01-07] MEDS ORDERED: Vancomycin Per Pharmacy MC (11:27)
[2018-01-07] MEDS ORDERED: SULF1TAB24 PO (11:35)
[2018-01-07] MEDS ORDERED: SERTRALINE 50MG TABLET PO SCH (12:00)
[2018-01-07 13:25] VITALS: BP 132/69
[2018-01-07] MEDS: VANCOMYCIN 1,600 MG in SODIUM CHLORIDE 0.9% 250 ML IV SCH (15:00)
[2018-01-07] MEDS ORDERED: SERT25TA PO (16:01)
[2018-01-07] MEDS ORDERED: LOSA25TA6 PO (16:01)
[2018-01-07] MEDS ORDERED: METO25TA35 PO (16:01)
[2018-01-07] MEDS ORDERED: MELA3TAB2 PO (16:02)
[2018-01-07] MEDS ORDERED: MELATONIN 3 MG TABLET PO SCH (21:00)
== END 2018-01-07 18:24 | DRG 917 ==
LOC: ED 22:18 → EDIP 22:46 → 5SO 01-02 00:29
PROVIDERS: ADMIT Hospitalist; ATTEND Hospitalist
DX: T39.1X2A Poisoning by 4-Aminophenol derivatives, intentional self-harm, initial encounter (principal); G92 Toxic encephalopathy; D68.69 Other thrombophilia; N39.0 Urinary tract infection, site not specified; I48.2 Chronic atrial fibrillation; E86.9 Volume depletion, unspecified; E78.5 Hyperlipidemia, unspecified; Z88.0 Allergy status to penicillin; Y92.89 Other specified places as the place of occurrence of the external cause; F03.90 Unspecified dementia, unspecified severity, without behavioral disturbance, psychotic disturbance, mood disturbance, and anxiety; F32.9 Major depressive disorder, single episode, unspecified; G47.33 Obstructive sleep apnea (adult) (pediatric); I11.0 Hypertensive heart disease with heart failure; I25.10 Atherosclerotic heart disease of native coronary artery without angina pectoris; I25.2 Old myocardial infarction; I50.9 Heart failure, unspecified; J32.0 Chronic maxillary sinusitis; Z79.01 Long term (current) use of anticoagulants; Z82.3 Family history of stroke; Z86.73 Personal history of transient ischemic attack (TIA), and cerebral infarction without residual deficits; Z87.440 Personal history of urinary (tract) infections; Z87.891 Personal history of nicotine dependence; Z91.19 Patient's noncompliance with other medical treatment and regimen; Z96.649 Presence of unspecified artificial hip joint
CPT/HCPCS: 36415; 70450; 71045; 76700; 80048; 80053; 80076; 80307; 80329; 81001; 82140; 83735; 84100; 84443; 84484; 85025; 85610; 87040; 87077; 87086; 87186; 93005; 96360; G0378; J0132; J0696; J2405; J3370; J7060; J7070; Q0162; 92523-GN; G0480; J3475; J7030; J7040; J7050

== ENCOUNTER 2018-03-03 13:58 | Inpatient (IN) | payer MEDICARE ==
[~2018-03-03] VITALS: Ht 175.3 cm; Wt 81.9 kg
[~2018-03-03 13:58] MED LIST changes: +BUPR-86 PO; +LOSA25TA25 PO; -LOSA25TA6 PO; +MELA3TAB2 PO; +METO25TA35 PO; +SERT25TA PO; +SULF1TAB24 PO; +TAMS0.4C2 PO; +Vancomycin Per Pharmacy MC
[2018-03-03] MEDS ORDERED: PRAV10TA2 PO (14:22)
[2018-03-03] MEDS ORDERED: METO25TA91 PO (14:24)
[2018-03-03] MEDS ORDERED: SODIUM CHLORIDE 0.9% 1,000ML IVBOLUS ONE (15:00)
[2018-03-03] MEDS ORDERED: ACETAMINOPHEN 500 MG TABLET PO ONE (15:00)
[2018-03-03 15:11] LABS: MEAN CORPUSCULAR HEMOGLOBIN 32.1 pg (27.5-34.5); MEAN CORPUSCULAR VOLUME 94.5 fL (81-97); MEAN PLATELET VOLUME 9.1 fL (7.4-10.4); PLATELET COUNT 188 x10^3/uL (130-400); RED BLOOD COUNT 3.69 x10^6/uL (4.38-5.82); RED CELL DISTRIBUTION WIDTH 16.4 % (9.4-14.8)
[2018-03-03 15:11] LABS: RAPID INFLUENZA A Negative (Negative); RAPID INFLUENZA B Negative (Negative)
[2018-03-03 15:22] LABS: INTERNATIONAL NORMALIZED RATIO 1.18 (0.93-1.1); PROTHROMBIN TIME 12.4 Seconds (9.6-11.5)
[2018-03-03 15:23] LABS: ALBUMIN 2.8 g/dL (3.4-5.0); ANION GAP 9 mmol/L (5-15); CALCIUM 8.8 mg/dL (8.5-10.1); CHLORIDE 103 mmol/L (98-107)
[2018-03-03 15:27] LABS: ALANINE AMINOTRANSFERASE 14 U/L (12-78); ALKALINE PHOSPHATASE 78 U/L (45-117); BILIRUBIN,TOTAL 1.8 mg/dL (0.2-1.0); CREATININE 0.59 mg/dL (0.7-1.3)
[2018-03-03 15:28] LABS: MD YES
[2018-03-03 15:29] LABS: BAND#(MANUAL) 0.18 x10^3/uL; BANDS%(MANUAL) 1 % (0-7); LYMPH#(MANUAL) 1.25 x10^3/uL (1-3.4); LYMPHS% (MANUAL) 7 % (22-44); MONOS#(MANUAL) 2.33 x10^3/uL (0.3-2.7); MONOS% (MANUAL) 13 % (2-9); SEG#(MANUAL) 14.14 x10^3/uL (1.8-6.8); SEGS% (MANUAL) 79 % (42-75)
[2018-03-03 15:32] LABS: <PLATELET ESTIMATE> ADEQUATE; <PLT MORPHOLOGY> NORMAL PLT MORPH; POLYCHROMASIA 1+
[2018-03-03 15:39] LABS: CULTURE INDICATED? YES; MICROSCOPIC INDICATED
[2018-03-03] MEDS ORDERED: ACETAMINOPHEN 500 MG TABLET ONE (15:57)
[2018-03-03] MEDS ORDERED: CEFTRIAXONE PMX 1GM/50ML 50 ML ONE (15:57)
[2018-03-03] MEDS ORDERED: CEFTRIAXONE PMX 1GM/50ML 50 ML IV ONE (16:00)
[2018-03-03] MEDS ORDERED: AZITHROMYCIN 500 MG in SODIUM CHLORIDE 0.9% 250 ML IV ONE (17:00)
[2018-03-03] MEDS ORDERED: SODIUM CHLORIDE 0.9% 1,000 ML IV SCH (17:28)
[2018-03-03] MEDS ORDERED: BUPIVACAINE/PF-EPI 0.5% 1:200K ONE (17:29)
[2018-03-03] MEDS ORDERED: DEXTROSE 50%, 50ML SYRINGE IVPush PRN (17:30)
[2018-03-03] MEDS ORDERED: GLUCAGON 1 MG IM PRN (17:30)
[2018-03-03] MEDS ORDERED: hydrALAzine 20 MG/ML, 1ML IVPush PRN (17:30)
[2018-03-03] MEDS ORDERED: ONDANSETRON ODT 4 MG PO PRN (17:30)
[2018-03-03] MEDS ORDERED: SODIUM CHLORIDE 0.9% 1,000ML IV ONE (17:30)
[2018-03-03] MEDS ORDERED: METRONIDAZOLE PMX 500MG/100ML 100 ML IV SCH (17:30)
[2018-03-03] MEDS ORDERED: ONDANSETRON 2MG/ML, 2ML IVPush PRN (17:30)
[2018-03-03] MEDS ORDERED: DEXTROSE 4 GM TAB.CHEW PO PRN (17:30)
[2018-03-03] MEDS ORDERED: CEFTRIAXONE PMX 1GM/50ML 50 ML IV SCH (17:30)
[2018-03-03] MEDS ORDERED: PHARMACY MAY ADJ FOR RENAL FX MC SCH (17:30)
[2018-03-03] MEDS ORDERED: ONDANSETRON ODT 8 MG PO PRN (18:00)
[2018-03-03] MEDS ORDERED: PROMETHAZINE 12.5 MG SUPP PR PRN (18:00)
[2018-03-03] MEDS ORDERED: MORPHINE SULFATE 4 MG/ML, 1ML IVPush PRN (18:00)
[2018-03-03] MEDS ORDERED: FENTANYL PF 100 MCG/2ML IV PRN ×2 (18:00→19:00)
[2018-03-03] MEDS ORDERED: hydrALAzine 20 MG/ML, 1ML IV PRN ×2 (18:00→19:00)
[2018-03-03] MEDS ORDERED: PROMETHAZINE 25 MG SUPP PR PRN (18:00)
[2018-03-03] MEDS ORDERED: ONDANSETRON 2MG/ML, 2ML IV PRN (18:00)
[2018-03-03] MEDS ORDERED: MEPERIDINE/PF 25MG/0.5ML IVPush PRN ×2 (18:00→19:00)
[2018-03-03] MEDS ORDERED: PROMETHAZINE 25 MG/ML, 1ML IV PRN ×2 (18:00→19:00)
[2018-03-03] MEDS ORDERED: PROMETHAZINE 25 MG/ML, 1ML IM PRN ×2 (18:00)
[2018-03-03] MEDS ORDERED: LABETALOL 5MG/ML, 20ML IV PRN ×2 (18:00→19:00)
[2018-03-03] MEDS ORDERED: HYDROmorphone 2 MG/ML, 1ML IVPush PRN ×2 (18:00→19:00)
[2018-03-03] MEDS ORDERED: OXYcodone 5 MG/5 ML ORAL.SOL UDC PO PRN ×2 (18:00→19:00)
[2018-03-03] MEDS ORDERED: FENTANYL PF 250 MCG/5ML ONE (18:09)
[2018-03-03 18:22] LABS: FREE T4 (FREE THYROXINE) 1.46 ng/dL (0.76-1.46); THYROID STIMULATING HORMONE 2.46 mIU/L (0.358-3.740)
[2018-03-03] MEDS ORDERED: PHENYLEPHRINE 10 MG/ML ONE (18:24)
[2018-03-03] MEDS ORDERED: DEXAMETHASONE 4 MG/ML, 1ML ONE (18:24)
[2018-03-03] MEDS ORDERED: PROPOFOL 10 MG/ML, 20ML ONE (18:24)
[2018-03-03] MEDS ORDERED: CEFOTETAN 2 GM ONE (18:24)
[2018-03-03] MEDS ORDERED: ONDANSETRON 2MG/ML, 2ML ONE (18:24)
[2018-03-03] MEDS ORDERED: SUCCINYLCHOLINE 20 MG/ML, 10ML ONE (18:24)
[2018-03-03] MEDS ORDERED: ROCURONIUM 10 MG/ML,10ML ONE (18:24)
[2018-03-03] MEDS ORDERED: MAGNESIUM SULFATE PMX 2GM/50ML 50 ML IV ONE (18:30)
[2018-03-03] MEDS ORDERED: POTASSIUM CHLORIDE 20 MEQ in SODIUM CHLORIDE 0.9% 250 ML IV ONE (18:30)
[2018-03-03] MEDS ORDERED: METOPROLOL 1 MG/ML, 5ML IV PRN (19:00)
[2018-03-03] MEDS ORDERED: DIPHENHYDRAMINE 50 MG/ML, 1ML IVPush PRN (19:00)
[2018-03-03] MEDS ORDERED: PROCHLORPERAZINE 5 MG/ML, 2ML IV PRN (19:00)
[2018-03-03] MEDS ORDERED: HALOPERIDOL 5 MG/ML IV PRN (19:00)
[2018-03-03] MEDS ORDERED: OXYcodone 5 MG/5 ML ORAL.SOL UDC ONE (19:58)
[2018-03-03 20:30] VITALS: BP 106/65
[2018-03-03] MEDS: SODIUM CHLORIDE FLUSH 10ML SYR IVF SCH (22:56)
[2018-03-03] MEDS: CEFEPIME 2 GM in DEXTROSE 5% 100 ML IV SCH (22:56)
[2018-03-03] MEDS: SODIUM CHLORIDE 0.9% 1,000 ML IV SCH (23:31)
[2018-03-04 00:19] VITALS: BP 94/59
[2018-03-04] MEDS ORDERED: MAGNESIUM SULFATE PMX 2GM/50ML 50 ML IV ONE (04:00)
[2018-03-04 04:10] VITALS: BP 120/65
[2018-03-04 06:18] LABS: ANION GAP 7 mmol/L (5-15); CALCIUM 7.9 mg/dL (8.5-10.1); CHLORIDE 107 mmol/L (98-107); CREATININE 0.61 mg/dL (0.7-1.3)
[2018-03-04 06:27] LABS: BASOPHILS % (AUTO) 0 % (0-1); EOSINOPHILS % (AUTO) 0 % (1-7); LYMPHOCYTES # (AUTO) 0.56 x10^3/uL (1-3.4); LYMPHOCYTES % (AUTO) 4 % (22-44); MD NO; MEAN CORPUSCULAR HEMOGLOBIN 32.3 pg (27.5-34.5); MEAN CORPUSCULAR HGB CONC 34.1 g/dL (33.2-36.2); MEAN CORPUSCULAR VOLUME 94.9 fL (81-97); MEAN PLATELET VOLUME 9.5 fL (7.4-10.4); MONOCYTES # (AUTO) 1.28 x10^3/uL (0.2-0.8); MONOCYTES % (AUTO) 10 % (2-9); NEUTROPHILS % (AUTO) 86 % (42-75); PLATELET COUNT 134 x10^3/uL (130-400); RED BLOOD COUNT 3.49 x10^6/uL (4.38-5.82); RED CELL DISTRIBUTION WIDTH 16.1 % (9.4-14.8)
[2018-03-04] MEDS: SODIUM CHLORIDE 0.9% 1,000 ML IV SCH ×2 (07:30→23:11)
[2018-03-04 07:36] VITALS: BP 101/67
[2018-03-04] MEDS: SODIUM CHLORIDE FLUSH 10ML SYR IVF SCH (09:00)
[2018-03-04] MEDS: PANTOPRAZOLE 40 MG IV IVPush SCH (09:01)
[2018-03-04] MEDS: CEFEPIME 2 GM in DEXTROSE 5% 100 ML IV SCH ×2 (09:01→20:20)
[2018-03-04] MEDS: morphine SULFATE 10 MG/ML, 1ML IVPush PRN ×2 (09:18→10:46)
[2018-03-04] MEDS: VANCOMYCIN 1,200 MG in SODIUM CHLORIDE 0.9% 250 ML IVPB SCH (12:00)
[2018-03-04 12:39] VITALS: BP 109/71
[2018-03-04] MEDS ORDERED: NITROGLYCERIN 0.4 MG BOTTLE (25 TABS) SL PRN (13:30)
[2018-03-04 19:17] VITALS: BP 128/72
[2018-03-04] MEDS: PRAVASTATIN 20 MG TABLET PO SCH (20:20)
[2018-03-04] MEDS: TAMSULOSIN 0.4 MG CAP.ER.24H PO SCH (20:21)
[2018-03-05 01:18] VITALS: BP 114/76
[2018-03-05 07:48] VITALS: BP 110/72
[2018-03-05] MEDS: SERTRALINE 100MG TABLET PO SCH (08:50)
[2018-03-05] MEDS: PANTOPRAZOLE 40 MG IV IVPush SCH (08:50)
[2018-03-05] MEDS: METOPROLOL SUCCINATE 25 MG TAB.ER.24H PO SCH (08:51)
[2018-03-05] MEDS: LOSARTAN 25MG TABLET PO SCH (08:51)
[2018-03-05] MEDS: CEFEPIME 2 GM in DEXTROSE 5% 100 ML IV SCH ×2 (08:51→22:04)
[2018-03-05] MEDS: SODIUM CHLORIDE FLUSH 10ML SYR IVF SCH ×2 (08:52→22:05)
[2018-03-05] MEDS: SODIUM CHLORIDE 0.9% 1,000 ML IV SCH ×2 (08:54→22:04)
[2018-03-05] MEDS: PANTOPROZOLE 40MG TABLET PO SCH (09:00)
[2018-03-05 10:06] LABS: MEAN CORPUSCULAR HEMOGLOBIN 31.7 pg (27.5-34.5); MEAN CORPUSCULAR HGB CONC 33.3 g/dL (33.2-36.2); MEAN CORPUSCULAR VOLUME 95.3 fL (81-97); MEAN PLATELET VOLUME 9.2 fL (7.4-10.4); PLATELET COUNT 153 x10^3/uL (130-400); RED BLOOD COUNT 3.32 x10^6/uL (4.38-5.82); RED CELL DISTRIBUTION WIDTH 16.4 % (9.4-14.8)
[2018-03-05 10:13] LABS: ANION GAP 7 mmol/L (5-15); CHLORIDE 105 mmol/L (98-107); CREATININE 0.63 mg/dL (0.7-1.3)
[2018-03-05 10:35] LABS: BASOPHILS # (AUTO) 0.05 x10^3/uL (0-0.1); BASOPHILS % (AUTO) 1 % (0-1); EOSINOPHILS % (AUTO) 0 % (1-7); LYMPHOCYTES % (AUTO) 7 % (22-44); MD SCAN; MONOCYTES # (AUTO) 0.71 x10^3/uL (0.2-0.8); MONOCYTES % (AUTO) 7 % (2-9); NEUTROPHILS # (AUTO) 8.16 x10^3/uL (1.8-6.8); NEUTROPHILS % (AUTO) 85 % (42-75)
[2018-03-05] MEDS ORDERED: POTASSIUM CHLORIDE 20 MEQ TAB.ER.PRT PO ONE (12:00)
[2018-03-05 14:00] VITALS: BP 116/77
[2018-03-05] MEDS: VANCOMYCIN 1,200 MG in SODIUM CHLORIDE 0.9% 250 ML IVPB SCH (14:00)
[2018-03-05 18:30] VITALS: BP 125/74
[2018-03-05] MEDS: PRAVASTATIN 20 MG TABLET PO SCH (22:04)
[2018-03-05] MEDS: TAMSULOSIN 0.4 MG CAP.ER.24H PO SCH (22:04)
[2018-03-05] MEDS: DOCUSATE 50 MG/5 ML, 10ML UDC PO SCH (22:05)
[2018-03-06] MEDS ORDERED: MAGNESIUM SULFATE PMX 2GM/50ML 50 ML IV ONE (00:30)
[2018-03-06 00:35] VITALS: BP 119/78
[2018-03-06 07:31] VITALS: BP 135/81
[2018-03-06] MEDS: SODIUM CHLORIDE 0.9% 1,000 ML IV SCH (08:00)
[2018-03-06] MEDS: CEFEPIME 2 GM in DEXTROSE 5% 100 ML IV SCH ×2 (08:24→21:59)
[2018-03-06] MEDS: SERTRALINE 100MG TABLET PO SCH (08:24)
[2018-03-06] MEDS: LOSARTAN 25MG TABLET PO SCH (08:24)
[2018-03-06] MEDS: DOCUSATE 50 MG/5 ML, 10ML UDC PO SCH ×2 (08:25→22:00)
[2018-03-06] MEDS: PANTOPROZOLE 40MG TABLET PO SCH (08:25)
[2018-03-06] MEDS: METOPROLOL SUCCINATE 25 MG TAB.ER.24H PO SCH (08:25)
[2018-03-06] MEDS: SODIUM CHLORIDE FLUSH 10ML SYR IVF SCH ×2 (08:25→22:00)
[2018-03-06] MEDS ORDERED: METOPROLOL SUCCINATE 25 MG TAB.ER.24H PO ONE (09:51)
[2018-03-06 10:39] LABS: ANION GAP 5 mmol/L (5-15); CALCIUM 7.9 mg/dL (8.5-10.1); CHLORIDE 108 mmol/L (98-107)
[2018-03-06 11:06] LABS: MD YES; MEAN CORPUSCULAR HGB CONC 33.7 g/dL (33.2-36.2); MEAN CORPUSCULAR VOLUME 94.9 fL (81-97); PLATELET COUNT 170 x10^3/uL (130-400); RED BLOOD COUNT 3.36 x10^6/uL (4.38-5.82); RED CELL DISTRIBUTION WIDTH 15.8 % (9.4-14.8)
[2018-03-06 11:08] LABS: EOS#(MANUAL) 0.42 x10^3/uL (0.0-0.4); EOS% (MANUAL) 5 % (1-7); LYMPH#(MANUAL) 1.09 x10^3/uL (1-3.4); LYMPHS% (MANUAL) 13 % (22-44); MONOS#(MANUAL) 0.59 x10^3/uL (0.3-2.7); MONOS% (MANUAL) 7 % (2-9); SEGS% (MANUAL) 75 % (42-75)
[2018-03-06 11:09] LABS: <PLATELET ESTIMATE> ADEQUATE; <PLT MORPHOLOGY> NORMAL PLT MORPH; HYPOCHROMIA 1+
[2018-03-06 11:55] VITALS: BP 136/87
[2018-03-06 12:25] VITALS: BP 133/83
[2018-03-06] MEDS ORDERED: FUROSEMIDE 20 MG/2 ML IV ONE (17:00)
[2018-03-06 18:39] VITALS: BP 124/77
[2018-03-06] MEDS: TAMSULOSIN 0.4 MG CAP.ER.24H PO SCH (21:59)
[2018-03-06] MEDS: PRAVASTATIN 20 MG TABLET PO SCH (21:59)
[2018-03-07 01:20] VITALS: BP 136/72
[2018-03-07 05:23] LABS: ANION GAP 6 mmol/L (5-15); CALCIUM 7.5 mg/dL (8.5-10.1); CHLORIDE 105 mmol/L (98-107); CREATININE 0.46 mg/dL (0.7-1.3)
[2018-03-07 08:07] VITALS: BP 136/76
[2018-03-07] MEDS: SODIUM CHLORIDE FLUSH 10ML SYR IVF SCH ×2 (09:00→19:54)
[2018-03-07] MEDS: DOCUSATE 50 MG/5 ML, 10ML UDC PO SCH ×2 (09:00→19:58)
[2018-03-07 09:18] VITALS: BP 132/86
[2018-03-07] MEDS: CEFEPIME 2 GM in DEXTROSE 5% 100 ML IV SCH ×2 (09:20→19:53)
[2018-03-07] MEDS: LOSARTAN 25MG TABLET PO SCH (09:22)
[2018-03-07] MEDS: PANTOPROZOLE 40MG TABLET PO SCH (09:22)
[2018-03-07] MEDS: SERTRALINE 100MG TABLET PO SCH (09:22)
[2018-03-07] MEDS: FUROSEMIDE 20 MG/2 ML IV SCH (09:22)
[2018-03-07] MEDS: METOPROLOL SUCCINATE 25 MG TAB.ER.24H PO SCH (09:48)
[2018-03-07] MEDS ORDERED: POTASSIUM CHLORIDE 20 MEQ TAB.ER.PRT PO ONE (11:00)
[2018-03-07 12:11] VITALS: BP 129/72
[2018-03-07 18:59] VITALS: BP 122/80
[2018-03-07] MEDS: PRAVASTATIN 20 MG TABLET PO SCH (19:52)
[2018-03-07] MEDS: TAMSULOSIN 0.4 MG CAP.ER.24H PO SCH (19:53)
[2018-03-08 02:11] VITALS: BP 127/85
[2018-03-08 07:26] VITALS: BP 144/78
[2018-03-08] MEDS ORDERED: DOCUSATE 100 MG CAPSULE ONE ×2 (08:23→21:11)
[2018-03-08] MEDS: FUROSEMIDE 20 MG/2 ML IV SCH (08:30)
[2018-03-08] MEDS: SERTRALINE 100MG TABLET PO SCH (08:30)
[2018-03-08] MEDS: PANTOPROZOLE 40MG TABLET PO SCH (08:30)
[2018-03-08] MEDS: LOSARTAN 25MG TABLET PO SCH (08:31)
[2018-03-08] MEDS: METOPROLOL SUCCINATE 25 MG TAB.ER.24H PO SCH (08:31)
[2018-03-08] MEDS: CEFEPIME 2 GM in DEXTROSE 5% 100 ML IV SCH ×2 (08:31→21:17)
[2018-03-08] MEDS: SODIUM CHLORIDE FLUSH 10ML SYR IVF SCH ×2 (08:32→21:00)
[2018-03-08] MEDS: DOCUSATE 50 MG/5 ML, 10ML UDC PO SCH ×2 (08:32→21:00)
[2018-03-08 13:52] VITALS: BP 148/82
[2018-03-08 18:10] LABS: ANION GAP 7 mmol/L (5-15); CALCIUM 8.8 mg/dL (8.5-10.1); CHLORIDE 99 mmol/L (98-107); CREATININE 0.54 mg/dL (0.7-1.3)
[2018-03-08 19:13] VITALS: BP 142/78
[2018-03-08] MEDS: TAMSULOSIN 0.4 MG CAP.ER.24H PO SCH (21:17)
[2018-03-08] MEDS: PRAVASTATIN 20 MG TABLET PO SCH (21:17)
[2018-03-09 01:10] VITALS: BP 128/75
[2018-03-09 06:05] LABS: ANION GAP 9 mmol/L (5-15); CALCIUM 8.2 mg/dL (8.5-10.1); CHLORIDE 101 mmol/L (98-107)
[2018-03-09 06:07] LABS: CREATININE 0.57 mg/dL (0.7-1.3)
[2018-03-09 07:42] VITALS: BP 127/59
[2018-03-09] MEDS: CEFEPIME 2 GM in DEXTROSE 5% 100 ML IV SCH ×2 (10:57→21:01)
[2018-03-09] MEDS: DOCUSATE 50 MG/5 ML, 10ML UDC PO SCH ×2 (10:57→20:27)
[2018-03-09] MEDS: SERTRALINE 100MG TABLET PO SCH (10:58)
[2018-03-09] MEDS: LOSARTAN 25MG TABLET PO SCH (10:59)
[2018-03-09] MEDS: SODIUM CHLORIDE FLUSH 10ML SYR IVF SCH ×2 (10:59→20:29)
[2018-03-09] MEDS: PANTOPROZOLE 40MG TABLET PO SCH (11:00)
[2018-03-09] MEDS: METOPROLOL SUCCINATE 25 MG TAB.ER.24H PO SCH (11:07)
[2018-03-09 11:15] VITALS: BP 98/59
[2018-03-09] MEDS: FUROSEMIDE 20 MG/2 ML IV SCH (11:15)
[2018-03-09 13:02] VITALS: BP 105/68
[2018-03-09] MEDS ORDERED: PINK LADY ENEMA 490 ML BOTTLE PR ONE (19:00)
[2018-03-09 19:22] VITALS: BP 106/72
[2018-03-09] MEDS: PRAVASTATIN 20 MG TABLET PO SCH (21:01)
[2018-03-09] MEDS: TAMSULOSIN 0.4 MG CAP.ER.24H PO SCH (21:01)
[2018-03-10 01:33] VITALS: BP 101/66
[2018-03-10 06:04] LABS: ANION GAP 7 mmol/L (5-15); CALCIUM 8.4 mg/dL (8.5-10.1); CHLORIDE 103 mmol/L (98-107); CREATININE 0.64 mg/dL (0.7-1.3)
[2018-03-10 07:11] VITALS: BP 114/72
[2018-03-10] MEDS: CEFEPIME 2 GM in DEXTROSE 5% 100 ML IV SCH ×2 (08:53→21:13)
[2018-03-10 09:34] VITALS: BP 111/63
[2018-03-10 09:40] VITALS: BP 118/70
[2018-03-10 14:33] VITALS: BP 124/84
[2018-03-10] MEDS: LOSARTAN 25MG TABLET PO SCH (14:51)
[2018-03-10] MEDS: METOPROLOL SUCCINATE 25 MG TAB.ER.24H PO SCH (14:52)
[2018-03-10] MEDS: SERTRALINE 100MG TABLET PO SCH (14:52)
[2018-03-10] MEDS: PANTOPROZOLE 40MG TABLET PO SCH (14:52)
[2018-03-10] MEDS: SODIUM CHLORIDE FLUSH 10ML SYR IVF SCH ×2 (14:53→21:13)
[2018-03-10] MEDS: DOCUSATE 50 MG/5 ML, 10ML UDC PO SCH ×2 (14:53→21:13)
--- NOTE | 2018-03-10 14:59 | NUR ---
PRODUCTION TRAINER recommend: CHOPPED/ THINS -No straws -Up at 90 degrees -Crushed medications -ALTERNATE SOLIDS/LIQUIDS Grant sheet posted in room Addendum: 03/10/18 at [address] Amended: Links added.
[2018-03-10 19:11] VITALS: BP 118/76
[2018-03-10] MEDS: TAMSULOSIN 0.4 MG CAP.ER.24H PO SCH (21:13)
[2018-03-10] MEDS: PRAVASTATIN 20 MG TABLET PO SCH (21:13)
[2018-03-11] VITALS (10 sets, daily range): BP systolic 98–127; BP diastolic 57–86
[2018-03-11] MEDS: SODIUM CHLORIDE FLUSH 10ML SYR IVF SCH ×2 (09:00→21:00)
[2018-03-11] MEDS: METOPROLOL SUCCINATE 25 MG TAB.ER.24H PO SCH (09:00)
[2018-03-11] MEDS: DOCUSATE 50 MG/5 ML, 10ML UDC PO SCH ×2 (09:00→21:27)
[2018-03-11] MEDS: LOSARTAN 25MG TABLET PO SCH (09:01)
[2018-03-11] MEDS: PANTOPROZOLE 40MG TABLET PO SCH (09:01)
[2018-03-11] MEDS: SERTRALINE 100MG TABLET PO SCH (09:02)
[2018-03-11] MEDS: CEFEPIME 2 GM in DEXTROSE 5% 100 ML IV SCH ×2 (09:06→21:27)
[2018-03-11] MEDS ORDERED: SODIUM CHLORIDE 0.9% 1,000ML IVBOLUS ONE (11:30)
[2018-03-11] MEDS: morphine SULFATE 10 MG/ML, 1ML IVPush PRN (18:21)
[2018-03-11] MEDS: TAMSULOSIN 0.4 MG CAP.ER.24H PO SCH (21:27)
[2018-03-11] MEDS: PRAVASTATIN 20 MG TABLET PO SCH (21:27)
[2018-03-12 00:48] VITALS: BP 120/80
[2018-03-12 07:10] VITALS: BP 120/83
[2018-03-12] MEDS: PANTOPROZOLE 40MG TABLET PO SCH (08:20)
[2018-03-12] MEDS: SERTRALINE 100MG TABLET PO SCH (08:20)
[2018-03-12] MEDS: METOPROLOL SUCCINATE 25 MG TAB.ER.24H PO SCH (08:20)
[2018-03-12] MEDS: SODIUM CHLORIDE FLUSH 10ML SYR IVF SCH ×2 (08:21→21:21)
[2018-03-12] MEDS: DOCUSATE 50 MG/5 ML, 10ML UDC PO SCH ×2 (08:29→21:21)
[2018-03-12] MEDS: CEFEPIME 2 GM in DEXTROSE 5% 100 ML IV SCH ×2 (09:09→21:20)
[2018-03-12 14:12] VITALS: BP 119/71
[2018-03-12] MEDS: morphine SULFATE 10 MG/ML, 1ML IVPush PRN (14:23)
[2018-03-12 20:40] VITALS: BP 121/68
[2018-03-12 21:20] VITALS: BP 117/76
[2018-03-12] MEDS: PRAVASTATIN 20 MG TABLET PO SCH (21:21)
[2018-03-12] MEDS: TAMSULOSIN 0.4 MG CAP.ER.24H PO SCH (21:21)
[2018-03-13 01:40] VITALS: BP 130/76
[2018-03-13 05:36] VITALS: BP 118/73
[2018-03-13 07:35] VITALS: BP 125/82
[2018-03-13] MEDS: SODIUM CHLORIDE FLUSH 10ML SYR IVF SCH ×2 (09:03→20:37)
[2018-03-13] MEDS: DOCUSATE 50 MG/5 ML, 10ML UDC PO SCH ×2 (09:03→20:36)
[2018-03-13] MEDS: CEFEPIME 2 GM in DEXTROSE 5% 100 ML IV SCH ×2 (09:03→20:37)
[2018-03-13] MEDS: PANTOPROZOLE 40MG TABLET PO SCH (09:04)
[2018-03-13] MEDS: METOPROLOL SUCCINATE 25 MG TAB.ER.24H PO SCH (09:04)
[2018-03-13] MEDS: SERTRALINE 100MG TABLET PO SCH (09:04)
[2018-03-13 10:00] VITALS: BP_SYST 102; BP_SYST 110; BP_DIAS 61; BP_DIAS 74
[2018-03-13 13:09] VITALS: BP 120/80
[2018-03-13] MEDS: PRAVASTATIN 20 MG TABLET PO SCH (20:37)
[2018-03-13] MEDS: TAMSULOSIN 0.4 MG CAP.ER.24H PO SCH (20:42)
[2018-03-13 21:48] VITALS: BP 124/75
[2018-03-14 03:10] VITALS: BP 124/81
[2018-03-14 04:47] LABS: BASOPHILS # (AUTO) 0.06 x10^3/uL (0-0.1); BASOPHILS % (AUTO) 1 % (0-1); EOSINOPHILS # (AUTO) 0.22 x10^3/uL (0-0.4); EOSINOPHILS % (AUTO) 2 % (1-7); LYMPHOCYTES # (AUTO) 1.44 x10^3/uL (1-3.4); LYMPHOCYTES % (AUTO) 15 % (22-44); MD NO; MEAN CORPUSCULAR HEMOGLOBIN 30.8 pg (27.5-34.5); MEAN CORPUSCULAR HGB CONC 32.5 g/dL (33.2-36.2); MEAN CORPUSCULAR VOLUME 94.7 fL (81-97); MONOCYTES # (AUTO) 0.96 x10^3/uL (0.2-0.8); MONOCYTES % (AUTO) 10 % (2-9); NEUTROPHILS # (AUTO) 7.23 x10^3/uL (1.8-6.8); NEUTROPHILS % (AUTO) 73 % (42-75); PLATELET COUNT 200 x10^3/uL (130-400); RED BLOOD COUNT 4.07 x10^6/uL (4.38-5.82); RED CELL DISTRIBUTION WIDTH 15.2 % (9.4-14.8)
[2018-03-14 04:56] LABS: ALBUMIN 2.1 g/dL (3.4-5.0); ANION GAP 7 mmol/L (5-15); CALCIUM 8.6 mg/dL (8.5-10.1); CHLORIDE 104 mmol/L (98-107)
[2018-03-14 05:01] LABS: ALANINE AMINOTRANSFERASE 21 U/L (12-78); ALKALINE PHOSPHATASE 82 U/L (45-117); BILIRUBIN,TOTAL 0.7 mg/dL (0.2-1.0); CREATININE 0.66 mg/dL (0.7-1.3); TOTAL PROTEIN 6.4 g/dL (6.4-8.2)
[2018-03-14 06:48] VITALS: BP_SYST 118; BP_SYST 125; BP_DIAS 78; BP_DIAS 80
[2018-03-14] MEDS: PANTOPROZOLE 40MG TABLET PO SCH (08:22)
[2018-03-14] MEDS: SERTRALINE 100MG TABLET PO SCH (08:23)
[2018-03-14] MEDS: METOPROLOL SUCCINATE 25 MG TAB.ER.24H PO SCH (08:23)
[2018-03-14] MEDS: DOCUSATE 50 MG/5 ML, 10ML UDC PO SCH ×2 (08:23→20:48)
[2018-03-14] MEDS: SODIUM CHLORIDE FLUSH 10ML SYR IVF SCH ×2 (08:23→20:58)
[2018-03-14] MEDS ORDERED: ACETAMINOPHEN 325 MG TABLET ONE (12:58)
[2018-03-14] MEDS: ACETAMINOPHEN 325 MG TABLET PO PRN (13:00)
[2018-03-14 17:10] LABS: CLOSTRIDIUM DIFFICILE ANTIGEN NEGATIVE; CLOSTRIDIUM DIFFICILE TOXIN NEGATIVE (Negative)
[2018-03-14 19:23] VITALS: BP 115/75
[2018-03-14] MEDS: TAMSULOSIN 0.4 MG CAP.ER.24H PO SCH (20:58)
[2018-03-14] MEDS: PRAVASTATIN 20 MG TABLET PO SCH (20:58)
[2018-03-15 00:51] VITALS: BP 106/69
[2018-03-15 06:39] LABS: ALBUMIN 2.1 g/dL (3.4-5.0); ANION GAP 9 mmol/L (5-15); CALCIUM 8.4 mg/dL (8.5-10.1); CHLORIDE 106 mmol/L (98-107); CREATININE 0.61 mg/dL (0.7-1.3)
[2018-03-15 06:48] VITALS: BP 113/78
[2018-03-15 08:24] VITALS: BP 128/84
[2018-03-15 08:25] VITALS: BP 117/73
[2018-03-15] MEDS: DOCUSATE 50 MG/5 ML, 10ML UDC PO SCH ×2 (08:49→20:38)
[2018-03-15] MEDS: PANTOPROZOLE 40MG TABLET PO SCH (10:05)
[2018-03-15] MEDS: SERTRALINE 100MG TABLET PO SCH (10:05)
[2018-03-15] MEDS: METOPROLOL SUCCINATE 25 MG TAB.ER.24H PO SCH (10:06)
[2018-03-15] MEDS: SODIUM CHLORIDE FLUSH 10ML SYR IVF SCH ×2 (10:09→20:38)
[2018-03-15] MEDS: ACETAMINOPHEN 325 MG TABLET PO PRN (10:14)
[2018-03-15 14:00] VITALS: BP 124/79
[2018-03-15] MEDS: ERYTHROMYCIN OPHTH 0.5%, 1GM OP SCH (20:38)
[2018-03-15] MEDS: TAMSULOSIN 0.4 MG CAP.ER.24H PO SCH (20:38)
[2018-03-15 20:52] VITALS: BP 129/76
[2018-03-15] MEDS: PRAVASTATIN 20 MG TABLET PO SCH (21:32)
[2018-03-16 01:20] VITALS: BP 110/71
[2018-03-16] MEDS: ERYTHROMYCIN OPHTH 0.5%, 1GM OP SCH ×4 (02:47→20:52)
[2018-03-16 07:50] VITALS: BP 122/80
[2018-03-16] MEDS: DOCUSATE 50 MG/5 ML, 10ML UDC PO SCH ×2 (07:59→20:52)
[2018-03-16] MEDS: METOPROLOL SUCCINATE 25 MG TAB.ER.24H PO SCH (09:49)
[2018-03-16] MEDS: SERTRALINE 100MG TABLET PO SCH (09:49)
[2018-03-16] MEDS: SODIUM CHLORIDE FLUSH 10ML SYR IVF SCH ×2 (09:49→20:52)
[2018-03-16] MEDS: PANTOPROZOLE 40MG TABLET PO SCH (09:49)
[2018-03-16] MEDS: ACETAMINOPHEN 325 MG TABLET PO PRN (10:33)
[2018-03-16 12:41] VITALS: BP 122/67
[2018-03-16] MEDS: TAMSULOSIN 0.4 MG CAP.ER.24H PO SCH (20:52)
[2018-03-16] MEDS: PRAVASTATIN 20 MG TABLET PO SCH (20:52)
[2018-03-16 23:07] VITALS: BP 119/72
[2018-03-17 03:06] VITALS: BP 117/74
[2018-03-17] MEDS: ERYTHROMYCIN OPHTH 0.5%, 1GM OP SCH ×4 (04:17→21:37)
[2018-03-17 08:02] VITALS: BP 123/79
[2018-03-17] MEDS: SODIUM CHLORIDE FLUSH 10ML SYR IVF SCH ×2 (08:25→21:38)
[2018-03-17] MEDS: METOPROLOL SUCCINATE 25 MG TAB.ER.24H PO SCH (08:25)
[2018-03-17] MEDS: DOCUSATE 50 MG/5 ML, 10ML UDC PO SCH ×2 (08:26→21:00)
[2018-03-17] MEDS: SERTRALINE 100MG TABLET PO SCH (08:26)
[2018-03-17] MEDS: PANTOPROZOLE 40MG TABLET PO SCH (08:26)
[2018-03-17 15:18] VITALS: BP 126/76
[2018-03-17] MEDS ORDERED: TAMS-11 PO (16:57)
[2018-03-17] MEDS ORDERED: METO25TA91 PO (16:57)
[2018-03-17] MEDS ORDERED: ERYT1OIN5 OP (16:57)
[2018-03-17 20:20] VITALS: BP 116/74
[2018-03-17] MEDS: PRAVASTATIN 20 MG TABLET PO SCH (21:37)
[2018-03-17] MEDS: TAMSULOSIN 0.4 MG CAP.ER.24H PO SCH (21:37)
[2018-03-18 03:46] VITALS: BP 106/71
[2018-03-18] MEDS: ERYTHROMYCIN OPHTH 0.5%, 1GM OP SCH ×2 (04:14→10:33)
[2018-03-18 05:57] LABS: BASOPHILS # (AUTO) 0.05 x10^3/uL (0-0.1); BASOPHILS % (AUTO) 1 % (0-1); EOSINOPHILS # (AUTO) 0.06 x10^3/uL (0-0.4); EOSINOPHILS % (AUTO) 1 % (1-7); LYMPHOCYTES # (AUTO) 1.46 x10^3/uL (1-3.4); LYMPHOCYTES % (AUTO) 18 % (22-44); MD NO; MEAN CORPUSCULAR HEMOGLOBIN 31.5 pg (27.5-34.5); MEAN CORPUSCULAR HGB CONC 34.1 g/dL (33.2-36.2); MEAN CORPUSCULAR VOLUME 92.3 fL (81-97); MEAN PLATELET VOLUME 8.8 fL (7.4-10.4); MONOCYTES # (AUTO) 0.82 x10^3/uL (0.2-0.8); MONOCYTES % (AUTO) 10 % (2-9); NEUTROPHILS # (AUTO) 5.66 x10^3/uL (1.8-6.8); NEUTROPHILS % (AUTO) 70 % (42-75); PLATELET COUNT 201 x10^3/uL (130-400); RED BLOOD COUNT 3.88 x10^6/uL (4.38-5.82); RED CELL DISTRIBUTION WIDTH 15.4 % (9.4-14.8)
[2018-03-18 06:07] LABS: ALANINE AMINOTRANSFERASE 17 U/L (12-78); ALBUMIN 2.3 g/dL (3.4-5.0); ANION GAP 6 mmol/L (5-15); CALCIUM 8.5 mg/dL (8.5-10.1); CHLORIDE 106 mmol/L (98-107); CREATININE 0.66 mg/dL (0.7-1.3)
[2018-03-18 06:10] LABS: ALKALINE PHOSPHATASE 81 U/L (45-117); BILIRUBIN,TOTAL 0.4 mg/dL (0.2-1.0); TOTAL PROTEIN 6.7 g/dL (6.4-8.2)
[2018-03-18 08:00] VITALS: BP 120/79
[2018-03-18] MEDS: DOCUSATE 50 MG/5 ML, 10ML UDC PO SCH (09:00)
[2018-03-18] MEDS: METOPROLOL SUCCINATE 25 MG TAB.ER.24H PO SCH (10:29)
[2018-03-18] MEDS: SERTRALINE 100MG TABLET PO SCH (10:29)
[2018-03-18] MEDS: PANTOPROZOLE 40MG TABLET PO SCH (10:30)
[2018-03-18] MEDS ORDERED: LOPERAMIDE 2 MG CAPSULE PO PRN (11:00)
[2018-03-18] MEDS ORDERED: LACTOBACILLUS 1GM/ PACKET PO SCH (11:00)
[2018-03-18] MEDS: SODIUM CHLORIDE FLUSH 10ML SYR IVF SCH (12:22)
[2018-03-18 12:40] VITALS: BP 113/82
== END 2018-03-18 16:09 | DRG 853 ==
LOC: ED 15:48 → EDIP 17:13 → 4WST 20:14
PROVIDERS: ADMIT Hospitalist; ATTEND Internal Medicine
PROC: 0FT44ZZ Resection of Gallbladder, Percutaneous Endoscopic Approach (ICD-10-PCS; principal; 2018-03-03 18:30)
DX: A41.9 Sepsis, unspecified organism (principal); J18.9 Pneumonia, unspecified organism; K80.00 Calculus of gallbladder with acute cholecystitis without obstruction; J98.11 Atelectasis; E87.1 Hypo-osmolality and hyponatremia; I50.32 Chronic diastolic (congestive) heart failure; E44.0 Moderate protein-calorie malnutrition; K82.A1 Gangrene of gallbladder in cholecystitis; E87.6 Hypokalemia; F03.90 Unspecified dementia, unspecified severity, without behavioral disturbance, psychotic disturbance, mood disturbance, and anxiety; F32.9 Major depressive disorder, single episode, unspecified; I11.0 Hypertensive heart disease with heart failure; I25.10 Atherosclerotic heart disease of native coronary artery without angina pectoris; I48.2 Chronic atrial fibrillation; I49.3 Ventricular premature depolarization; Z96.619 Presence of unspecified artificial shoulder joint; I95.1 Orthostatic hypotension; N40.0 Benign prostatic hyperplasia without lower urinary tract symptoms; R29.6 Repeated falls; D63.8 Anemia in other chronic diseases classified elsewhere; E78.00 Pure hypercholesterolemia, unspecified; Z68.26 Body mass index [BMI] 26.0-26.9, adult; E83.42 Hypomagnesemia; E78.5 Hyperlipidemia, unspecified; I25.2 Old myocardial infarction; R65.20 Severe sepsis without septic shock; Z66 Do not resuscitate; Z79.01 Long term (current) use of anticoagulants; Z79.02 Long term (current) use of antithrombotics/antiplatelets; Z91.5 Personal history of self-harm; Z91.81 History of falling; Z88.0 Allergy status to penicillin
CPT/HCPCS: 36415; 36600; 70450; 71045; 71250; 74230; 76700; 80048; 80053; 80202; 81001; 82040; 82140; 82803; 83605; 83690; 83735; 84145; 84439; 84443; 85025; 85610; 85730; 87040; 87081; 87086; 87324; 87400; 88304; 93005; 96374; 99291; C1729; G0378; J0696; J1100; J2405; J2704; J3010; J3370; J3480; Q0162; C1760; C9113; J0330; J1940; J2270; J2370; J3475; J3490; J7030; J7050